=== PATIENT | female | born 1945 | race Caucasian/White ===

== ENCOUNTER 2016-03-16 08:06 | Outpatient (CLI) | payer MEDICARE, OTHER | END 2016-03-16 08:07 | disposition home or self-care (01) | DX: E11.9 Type 2 diabetes mellitus without complications (principal) ==

== ENCOUNTER 2016-03-27 10:42 | Outpatient (CLI) | payer MEDICARE, OTHER | END 2016-03-27 10:43 | disposition home or self-care (01) | DX: Z85.3 Personal history of malignant neoplasm of breast (principal) ==

== ENCOUNTER 2016-05-25 11:07 | Outpatient (CLI) | payer MEDICARE, OTHER | END 2016-05-25 11:08 | disposition home or self-care (01) | DX: E11.621 Type 2 diabetes mellitus with foot ulcer (principal); L03.039 Cellulitis of unspecified toe ==

== ENCOUNTER 2016-06-06 08:51 | Outpatient (CLI) | payer MEDICARE, OTHER | END 2016-06-06 08:52 | disposition home or self-care (01) | DX: G47.33 Obstructive sleep apnea (adult) (pediatric) (principal) | CPT/HCPCS: 99214; G0463 ==

== ENCOUNTER 2016-06-11 19:22 | Outpatient (CLI) | payer MEDICARE, OTHER | END 2016-06-11 19:23 | disposition home or self-care (01) | DX: G47.33 Obstructive sleep apnea (adult) (pediatric) (principal); Z68.35 Body mass index [BMI] 35.0-35.9, adult ==

== ENCOUNTER 2016-06-27 09:02 | Outpatient (CLI) | payer MEDICARE, OTHER | END 2016-06-27 09:03 | disposition home or self-care (01) | DX: G47.33 Obstructive sleep apnea (adult) (pediatric) (principal) | CPT/HCPCS: 99214; G0463 ==

== ENCOUNTER 2016-08-20 07:24 | Outpatient (CLI) | payer MEDICARE, OTHER ==
[2016-08-20 07:57] LABS: ALBUMIN/GLOBULIN RATIO 1.4 (1.0-2.2); BILIRUBIN,TOTAL 0.4 mg/dL (0.2-1.0); BUN - BLOOD UREA NITROGEN 25 mg/dL (6-20); CALCIUM 9.7 mg/dL (8.5-10.3); CARBON DIOXIDE - CO2 27 mmol/L (21-32); CHLORIDE 104 mmol/L (101-111); CHOLESTEROL 137 mg/dL; GFR - MDRD 55 (>89); GLUCOSE 113 mg/dL (70-100); HDL CHOLESTEROL 46 mg/dL; LDL/HDL RATIO 1.5 (<4.4); POTASSIUM 3.6 mmol/L (3.5-5.0); SODIUM 141 mmol/L (135-145); TOTAL PROTEIN 6.6 g/dL (6.7-8.2); TRIGLYCERIDES 101 mg/dL; VLDL CHOLESTEROL 20 mg/dL
[2016-08-20 07:58] LABS: BASOPHILS # (AUTO) 0.1 10^3/uL (0.0-0.1); BASOPHILS % (AUTO) 1.3 %; EOSINOPHILS # (AUTO) 0.3 10^3/uL (0.0-0.7); HCT - HEMATOCRIT 38.2 % (37.0-47.0); HGB - HEMOGLOBIN 12.9 g/dL (12.0-16.0); LYMPHOCYTES # (AUTO) 2.2 10^3/uL (1.5-3.5); LYMPHOCYTES % (AUTO) 32.7 %; MEAN CORPUSCULAR HEMOGLOBIN 30.6 pg (27.0-31.0); MEAN CORPUSCULAR HGB CONC 33.7 g/dL (32.0-36.0); MEAN CORPUSCULAR VOLUME 90.9 fL (81.0-99.0); MEAN PLATELET VOLUME 7.8 fL (7.9-10.8); MONOCYTES # (AUTO) 0.7 10^3/uL (0.0-1.0); MONOCYTES % (AUTO) 10.9 %; NEUTROPHILS # (AUTO) 3.4 10^3/uL (1.5-6.6); NEUTROPHILS % (AUTO) 50.1 %; RED CELL DISTRIBUTION WIDTH 13.7 % (12.0-15.0); UNCORRECTED WHITE BLOOD COUNT 6.8 x10^3/uL; WHITE BLOOD COUNT 6.8 x10^3/uL (4.8-10.8)
[2016-08-20 08:07] LABS: HEMOGLOBIN A1C 0.56 g/dL
== END 2016-08-20 07:25 | disposition home or self-care (01) ==
LOC: LAB 07:24
PROVIDERS: ATTEND Family Medicine
DX: I10 Essential (primary) hypertension (principal); E11.9 Type 2 diabetes mellitus without complications; E78.5 Hyperlipidemia, unspecified
CPT/HCPCS: 36415; 80053; 80061; 83036; 84443; 85025

== ENCOUNTER 2016-08-22 09:38 | Outpatient (CLI) | payer MEDICARE, OTHER | END 2016-08-22 09:39 | disposition home or self-care (01) | LOC: SC 09:38 | PROVIDERS: ATTEND Nurse Practitioner Family | DX: G47.33 Obstructive sleep apnea (adult) (pediatric) (principal) | CPT/HCPCS: 99214; G0463; 99212 ==

== ENCOUNTER 2016-11-27 08:41 | Outpatient (CLI) | payer MEDICARE, OTHER | END 2016-11-27 08:42 | disposition home or self-care (01) | LOC: SC 08:41 | PROVIDERS: ATTEND Nurse Practitioner Family | DX: G47.33 Obstructive sleep apnea (adult) (pediatric) (principal) | CPT/HCPCS: 99214; G0463; 99212 ==

== ENCOUNTER 2017-02-18 10:23 | Emergency (ER) | payer MEDICARE, OTHER ==
--- NOTE | 2017-02-18 13:05 | XRAY Preliminary Report ---
Exam: XR KNEE 3 VIEW LT IMPRESSION: 1. Suggestion of a hairline fracture medial tibial plateau. Correlate clinically determine if dedicat ed CT study would BE useful to further evaluate. 2. Small joint effusion. 3. Minimal degenerative changes, grade one by Kellgren and Adi classification. [facility] SITE ID: [id number]
--- NOTE | 2017-02-18 13:16 | XRAY Report ---
EXAM: LEFT KNEE RADIOGRAPHY EXAM DATE: 02/18/2017 12:17 PM. CLINICAL HISTORY: Pain without precipitating injury. COMPARISON: None. TECHNIQUE: 3 views. FINDINGS: Bones: Osteopenia. Suggestion of a linear hairline fracture sagittal plane medialmost aspect of the medial t ibial plateau, without depression. Joints: Small joint effusion. Minimal bony degenerative changes. Soft Tissues: Normal. No soft tissue swelling. IMPRESSION: 1. Suggestion of a hairline fracture medial tibial plateau. Correlate clinically to determine if dedi cated CT study would be useful to further evaluate. 2. Small joint effusion. 3. Minimal degenerative changes, grade 1 by Kellgren and Adi classification. [facility] Referring Provider Line: [phone] SITE ID: [id number]
--- NOTE | 2017-02-18 14:20 | CT Preliminary Report ---
Exam: CT LOWER EXTREMITY LEFT W/O IMPRESSION: 1. No fracture by CT. 2. Mild osteoarthritis. 3. Mild knee effusion. [facility] SITE ID: [id number]
--- NOTE | 2017-02-18 14:23 | CT Report ---
EXAM: LEFT KNEE CT WITHOUT CONTRAST EXAM DATE: 02/18/2017 02:11 PM. CLINICAL HISTORY: Left knee pain. Possible tibial plateau fracture. COMPARISON: 02/18/2017 and radiograph. TECHNIQUE: Thin-section axial images were acquired of the knee without contrast. Post-processing: Cor onal and sagittal reformats. Other: None. In accordance with CT protocol optimization, one or more of the following dose reduction techniques w ere utilized for this exam: automated exposure control, adjustment of mA and/or KV based on patient s ize, or use of iterative reconstructive technique. FINDINGS: Bones: Moderate osteopenia limits evaluation for subtle bony abnormalities. No fractures appreciated by CT. Joints: Mild tricompartmental osteophytes are present in the knee joint. A mild effusion is present. Musculature: Normal. No fatty atrophy. Other: There is enthesopathy at the PCL insertion and in the extensor mechanism. Arterial calcificati ons indicate atherosclerosis. IMPRESSION: 1. No fracture by CT. 2. Mild osteoarthritis. 3. Mild knee effusion. [facility] Referring Provider Line: [phone] SITE ID: [id number]
--- NOTE | 2017-02-18 14:51 | ED Physician Documentation ---
History of Present Illness - Stated complaint Stated Complaint: LEFT LEG PX - Chief complaint Chief Complaint: Trauma Ext - History obtained from History obtained from: Patient (pt is here for evaluation of left knee pain. she states that over the past couple days she has had pain with walking, no specific trauma.) Review of Systems Constitutional: denies: Fever, Chills Cardiac: denies: Chest pain / pressure Respiratory: denies: Dyspnea GI: denies: Abdominal Pain, Nausea, Vomiting : denies: Dysuria Skin: denies: Rash, Lesions Musculoskeletal: reports: Extremity pain (left knee), Joint pain (left knee), Pain with weight bearing (left knee). denies: Extremity swelling, Joint swelling Neurologic: denies: Generalized weakness, Focal weakness, Numbness PD PAST MEDICAL HISTORY - Past Medical History Past Medical History: Yes Cardiovascular: Congestive heart failure, Hypertension, High cholesterol Respiratory: COPD, Sleep apnea, CPAP use Neuro: None, Peripheral neuropathy Endocrine/Autoimmune: Type 2 diabetes, HyPOthyroidism, Other GI: Colon polyps, Chronic constipation CHIROPRACTIC NEUROLOGIST: Breast cancer : Renal insuffiency HEENT: Other Psych: Depression Musculoskeletal: Osteoarthritis, Gout, Other Derm: Other - Past Surgical History Past Surgical History: Yes General: Colonoscopy Ortho: Knee replacement, Carpal Tunnel surgery, Other HEENT: Cataracts, Tonsil/Adenoidectomy - Present Medications Home Medications: Ambulatory Orders Medication Instructions Recorded Confirmed Allopurinol 100 mg PO DAILY 09/25/12 02/18/17 Levothyroxine Sodium [Levothroid] 125 mcg PO DAILY 09/25/12 02/18/17 Lovastatin [Mevacor] 40 mg PO DAILY 09/25/12 02/18/17 Furosemide [Lasix] 80 mg PO QAM 11/28/12 02/18/17 Insulin Aspart [Novolog] 25 unit SQ TID 11/28/12 02/18/17 Insulin Glargine,Hum.rec.anlog 40 unit SQ QAM 11/28/12 02/18/17 [Lantus Solostar] Metformin HCl 1,000 mg PO BID 11/28/12 02/18/17 Potassium Chloride [Klor-Con 10] 40 meq PO DAILY 11/28/12 02/18/17 Aspirin [Aspir 81] 81 mg PO DAILY 07/16/13 02/18/17 Cholecalciferol (Vitamin D3) 2,000 unit PO DAILY 07/16/13 02/18/17 [Vitamin D3] Alprazolam 1 mg PO QPM PRN 10/08/13 02/18/17 Ubidecarenone [Co Q-10] 200 mg PO DAILY 05/27/14 02/18/17 Linaclotide [Linzess] 290 mcg PO DAILY 12/08/14 02/18/17 Lincoln-3 Fatty Acids [Fish Oil] 1,200 mg PO BID 03/02/15 02/18/17 Anastrozole 1 mg DAILY 03/25/15 06/07/16 buPROPion [Wellbutrin Sr] 300 mg PO DAILY 11/30/15 02/18/17 Turmeric/Turmeric Root Extract 500 mg PO DAILY 06/07/16 02/18/17 [Turmeric] - Allergies Allergies/Adverse Reactions: Allergies Allergy/AdvReac Type Severity Reaction Status Date / Time lisinopril Allergy Intermediate low BP Verified 02/18/17 11:08 Penicillins Allergy Intermediate Unknown Verified 02/18/17 11:08 theophylline Allergy Intermediate Rash Verified 02/18/17 11:08 oxycodone Allergy Unknown Verified 02/18/17 11:08 aripiprazole [From Abilify] AdvReac Intermediate Depression Verified 02/18/17 11 :08 clindamycin AdvReac Intermediate stomatitis Verified 02/18/17 11:08 losartan potassium * AdvReac Intermediate renal Verified 02/18/17 11:08 [From Cozaar] problems - Social History Does the pt smoke?: No Smoking Status: Never smoker Does the pt drink ETOH?: No Does the pt have substance abuse?: No - Immunizations Immunizations are current?: Yes - POLST Patient has POLST: Yes PD ED PE NORMAL - Vitals Vital signs reviewed: Yes - General General: Alert and oriented X 3 - Cardiac Cardiac: Strong equal pulses - Derm Derm: Normal color, No rash - Extremities Extremities: No deformity, No edema, No calf tenderness / cord. No: No tenderness to palpate (pt with TTO pver the left posterior knee and laong the medial aspect of the knee. has full ROM. no effusion, no instability. Has TTP over the proximal fibula. ) - Neuro Neuro: Alert and oriented X 3, Other (sensation intact to light touch to the left knee. ) - Psych Psych: Normal mood, Normal affect Results - Vitals Vitals: Vital Signs - 24 hr 02/18/17 02/18/17 10:49 13:39 Temperature 36.8 C 37.0 C Heart Rate 80 74 Respiratory 20 18 Rate Blood Pressure 174/81 H 176/86 H O2 Saturation 99 100 Oxygen O2 Source [With Activity] Room air O2 Source Room air - Labs Labs: Laboratory Tests 02/18/17 12:16 POC Whole Bld Glucose 104 H - Rads (name of study) X-ray left knee Radiology: Final report received Knee CT Radiology: Final report received PD MEDICAL DECISION MAKING - ED course Complexity details: d/w patient ED course: pt is N/V intact to the left knee. No effusion, no fracture on the CT scan. discussed RICE treatment with the patient. will avoid NSAID's because of possible renal issues. She will follow up with her PCm. Departure - Departure Disposition: 01 Home, Self Care Clinical Impression: Knee injury Condition: Good Instructions: ED Sprain Knee, RICE Follow-Up: Tabitha Jameson DO [Primary Care Provider] - Comments: Recommend that you follow up with your primary care provider for a follow up. Elevate and ice the knee like we discussed. Return to the ER for any new or worsening symptoms.
[2017-02-18 15:08] VITALS: BP 119/64
== END 2017-02-18 15:10 | disposition home or self-care (01) ==
LOC: ED 10:23
DX: S89.92XA Unspecified injury of left lower leg, initial encounter (principal); X58.XXXA Exposure to other specified factors, initial encounter; I11.0 Hypertensive heart disease with heart failure; I50.9 Heart failure, unspecified; E11.42 Type 2 diabetes mellitus with diabetic polyneuropathy; Z79.4 Long term (current) use of insulin; E03.9 Hypothyroidism, unspecified; Z85.3 Personal history of malignant neoplasm of breast; Z86.010 Personal history of colon polyps; E78.00 Pure hypercholesterolemia, unspecified; J44.9 Chronic obstructive pulmonary disease, unspecified; G47.30 Sleep apnea, unspecified; M19.90 Unspecified osteoarthritis, unspecified site; M10.9 Gout, unspecified; Z79.82 Long term (current) use of aspirin
CPT/HCPCS: 99282; 99283

== ENCOUNTER 2017-03-15 08:03 | Outpatient (CLI) | payer MEDICARE, OTHER ==
[2017-03-15 08:24] LABS: BASOPHILS # (AUTO) 0.1 10^3/uL (0.0-0.1); BASOPHILS % (AUTO) 0.8 %; EOSINOPHILS # (AUTO) 0.3 10^3/uL (0.0-0.7); EOSINOPHILS % (AUTO) 3.7 %; HGB - HEMOGLOBIN 13.2 g/dL (12.0-16.0); LYMPHOCYTES # (AUTO) 2.2 10^3/uL (1.5-3.5); LYMPHOCYTES % (AUTO) 28.1 %; MEAN CORPUSCULAR HEMOGLOBIN 31.5 pg (27.0-31.0); MEAN CORPUSCULAR HGB CONC 34.4 g/dL (32.0-36.0); MEAN CORPUSCULAR VOLUME 91.7 fL (81.0-99.0); MEAN PLATELET VOLUME 7.4 fL (7.9-10.8); MONOCYTES # (AUTO) 0.7 10^3/uL (0.0-1.0); MONOCYTES % (AUTO) 9.1 %; NEUTROPHILS # (AUTO) 4.6 10^3/uL (1.5-6.6); NEUTROPHILS % (AUTO) 58.3 %; PLT - PLATELET COUNT 228 10^3/uL (130-450); RED CELL DISTRIBUTION WIDTH 13.2 % (12.0-15.0); WHITE BLOOD COUNT 7.8 x10^3/uL (4.8-10.8)
[2017-03-15 08:58] LABS: ALBUMIN 4.1 g/dL (3.2-5.5); ALBUMIN/GLOBULIN RATIO 1.3 (1.0-2.2); ALKALINE PHOSPHATASE 51 IU/L (42-121); ALT ALANINE AMINOTRANSFERASE 24 IU/L (10-60); AST ASPARTATE AMINOTRANSFERASE 23 IU/L (10-42); BILIRUBIN,TOTAL 0.6 mg/dL (0.2-1.0); BUN - BLOOD UREA NITROGEN 29 mg/dL (6-20); CALCIUM 10.3 mg/dL (8.5-10.3); CARBON DIOXIDE - CO2 29 mmol/L (21-32); CHLORIDE 99 mmol/L (101-111); CHOL/HDL RATIO 3.5 (<4.4); CHOLESTEROL 149 mg/dL; CREATININE 1.1 mg/dL (0.4-1.0); GFR - MDRD 49 (>89); GLUCOSE 112 mg/dL (70-100); HDL CHOLESTEROL 42 mg/dL; LDL CHOLESTEROL,CALCULATED 74 mg/dL; LDL/HDL RATIO 1.8 (<4.4); SODIUM 139 mmol/L (135-145); TOTAL PROTEIN 7.2 g/dL (6.7-8.2); VLDL CHOLESTEROL 33 mg/dL
[2017-03-15 09:05] LABS: HB2 TOTAL 14.6 g/dL; HEMOGLOBIN A1C 0.7 g/dL; HEMOGLOBIN A1C % 6.5 % (4.6-6.2)
== END 2017-03-15 08:04 | disposition home or self-care (01) ==
LOC: LAB 08:03
PROVIDERS: ATTEND Family Medicine
DX: E11.9 Type 2 diabetes mellitus without complications (principal)
CPT/HCPCS: 36415; 80053; 80061; 82043; 83036; 84443; 85025

== ENCOUNTER 2017-04-01 08:46 | Outpatient (CLI) | payer MEDICARE, OTHER ==
--- NOTE | 2017-04-01 15:03 | Mammography Report ---
DATE OF SERVICE: 04/01/2017 DIAGNOSTIC BILATERAL MAMMOGRAM: 04/01/2017 CLINICAL INDICATION: A 71-year-old with personal history of left breast cancer , status post lumpectomy and radiation therapy. COMPARISON: 03/27/2016, 09/09/2015, 03/17/2015, 03/25/2012, 03/13/2013, 2012, 03/15/2011, 03/15/2010, 03/15/2009. TECHNIQUE: Bilateral CC and MLO views, left true lateral and spot magnification views. FINDINGS: The breasts demonstrate scattered fibroglandular densities bilaterally. Postoperative and post-radiation changes in the left breast are stable. Coarse , typically benign calcifications are present, no suspicious masses, clustered microcalcifications, or regions of architectural distortion are identified. IMPRESSION: BENIGN FINDINGS. RECOMMENDATION: Routine annual mammography unless otherwise clinically indicated. BIRADS CATEGORY 2 - BENIGN FINDINGS. STANDARD QUALIFYING STATEMENTS: 1. This examination was reviewed with the aid of Computer-Aided Detection (CAD) . 2. A negative or benign imaging report should not delay biopsy if clinically suspicious findings are present. Consider surgical consultation if warranted. More than 5 % of cancers are not identified by imaging. 3. Dense breasts may obscure an underlying neoplasm. TD: 04/01/2017 16:02 ANDREEA
== END 2017-04-01 08:47 | disposition home or self-care (01) ==
LOC: DI 08:46
PROVIDERS: ATTEND Physician Assistant Medical
DX: Z12.31 Encounter for screening mammogram for malignant neoplasm of breast (principal); Z85.3 Personal history of malignant neoplasm of breast
CPT/HCPCS: 77066

== ENCOUNTER 2017-06-04 09:24 | Outpatient (CLI) | payer MEDICARE, OTHER | END 2017-06-04 09:25 | disposition home or self-care (01) | LOC: SC 09:24 | PROVIDERS: ATTEND Nurse Practitioner Family | DX: G47.33 Obstructive sleep apnea (adult) (pediatric) (principal) | CPT/HCPCS: 99214; G0463; 99212 ==

== ENCOUNTER 2017-08-06 08:59 | Outpatient (CLI) | payer MEDICARE, OTHER ==
--- NOTE | 2017-08-07 10:17 | Nuclear Medicine Report ---
EXAM: BONE SCAN EXAM DATE: 08/06/2017 11:29 AM. CLINICAL HISTORY: Shoulder pain, right. History of personal malignancy, breast. COMPARISON: None. TECHNIQUE: Following the intravenous administration of 32.9 mCi of technetium 99m MDP and an appropri ate delay, a whole-body scan was performed in anterior and posterior projections. Site-specific spot views of the region of interest were obtained in various projections. FINDINGS: Exam Quality: Normal overall osseous radiotracer uptake. Physiological tracer uptake in bilateral col lecting systems. Skull: No focal uptake. Thorax: Mild increased uptake bilateral acromioclavicular joints, right greater than left. There is also mild increased uptake bilateral sternoclavicular joints. Mild increased uptake bilatera l T7 costovertebral junctions, likely degenerative. Mild increased uptake bilateral glenohumeral joints. Pelvis: No focal lesions. Spine: Mild to moderate increased uptake anterior lower cervical spine, likely degenerative disk dise ase. Mild increased uptake in the knees and ankles, degenerative. IMPRESSION: 1. Mild increased uptake bilateral acromioclavicular joints, right greater than left, consistent with degenerative joint disease. Also, mild increased uptake in the bilateral glenohumeral joints, also c onsistent with degenerative joint disease. 2. Uptake in the lower anterior cervical spine likely degenerative disk disease. 3. Mild degenerative changes in the mid thoracic spine, knees and ankles. [facility] Referring Provider Line: [phone] SITE ID: [id number]
== END 2017-08-06 09:00 | disposition home or self-care (01) ==
LOC: DI 08:59
PROVIDERS: ATTEND Family Medicine
DX: M25.9 Joint disorder, unspecified (principal)
CPT/HCPCS: 78306; A9503

== ENCOUNTER 2017-08-12 08:00 | Outpatient (CLI) | payer MEDICARE, OTHER ==
[2017-08-12 12:36] LABS: ALBUMIN 3.6 g/dL (3.2-5.5); ALBUMIN/GLOBULIN RATIO 1.1 (1.0-2.2); BILIRUBIN,TOTAL 0.4 mg/dL (0.2-1.0); CALCIUM 9.7 mg/dL (8.5-10.3); CREATININE 0.8 mg/dL (0.4-1.0); TOTAL PROTEIN 6.8 g/dL (6.7-8.2)
[2017-08-12 12:37] LABS: HB2 TOTAL 13.3 g/dL; HEMOGLOBIN A1C 0.58 g/dL; HEMOGLOBIN A1C % 6.1 % (4.6-6.2)
[2017-08-12 12:44] LABS: THYROID STIMULATING HORMONE 0.6 uIU/mL (0.34-5.60)
[2017-08-12 12:51] LABS: BASOPHILS # (AUTO) 0.1 10^3/uL (0.0-0.1); EOSINOPHILS # (AUTO) 0.7 10^3/uL (0.0-0.7); EOSINOPHILS % (AUTO) 9.9 %; HGB - HEMOGLOBIN 12.4 g/dL (12.0-16.0); LYMPHOCYTES # (AUTO) 1.9 10^3/uL (1.5-3.5); LYMPHOCYTES % (AUTO) 25.2 %; MEAN CORPUSCULAR HEMOGLOBIN 31.4 pg (27.0-31.0); MEAN CORPUSCULAR HGB CONC 33.7 g/dL (32.0-36.0); MEAN CORPUSCULAR VOLUME 93.1 fL (81.0-99.0); MEAN PLATELET VOLUME 8.4 fL (7.9-10.8); MONOCYTES # (AUTO) 0.6 10^3/uL (0.0-1.0); MONOCYTES % (AUTO) 8.3 %; NEUTROPHILS # (AUTO) 4.1 10^3/uL (1.5-6.6); NEUTROPHILS % (AUTO) 55.6 %; PLT - PLATELET COUNT 249 10^3/uL (130-450); RED BLOOD COUNT 3.94 10^6/uL (4.20-5.40); WHITE BLOOD COUNT 7.4 x10^3/uL (4.8-10.8)
== END 2017-08-12 08:01 | disposition home or self-care (01) ==
LOC: LAB.WCP 08:00
PROVIDERS: ATTEND Family Medicine
DX: E11.9 Type 2 diabetes mellitus without complications (principal)
CPT/HCPCS: 36415; 80053; 82607; 83036; 84443; 85025

== ENCOUNTER 2018-03-20 08:00 | Outpatient (CLI) | payer MEDICARE, OTHER ==
[2018-03-20 12:55] LABS: BASOPHILS # (AUTO) 0.1 10^3/uL (0.0-0.1); BASOPHILS % (AUTO) 1.3 %; EOSINOPHILS # (AUTO) 0.9 10^3/uL (0.0-0.7); EOSINOPHILS % (AUTO) 11.4 %; HGB - HEMOGLOBIN 13.5 g/dL (12.0-16.0); LYMPHOCYTES # (AUTO) 1.7 10^3/uL (1.5-3.5); LYMPHOCYTES % (AUTO) 22.1 %; MEAN CORPUSCULAR HEMOGLOBIN 31.1 pg (27.0-31.0); MEAN CORPUSCULAR HGB CONC 34.2 g/dL (32.0-36.0); MEAN CORPUSCULAR VOLUME 91.1 fL (81.0-99.0); MEAN PLATELET VOLUME 8.7 fL (7.9-10.8); MONOCYTES # (AUTO) 0.6 10^3/uL (0.0-1.0); MONOCYTES % (AUTO) 7.7 %; NEUTROPHILS # (AUTO) 4.6 10^3/uL (1.5-6.6); NEUTROPHILS % (AUTO) 57.5 %; PLT - PLATELET COUNT 242 10^3/uL (130-450); RED BLOOD COUNT 4.34 10^6/uL (4.20-5.40); RED CELL DISTRIBUTION WIDTH 14.1 % (12.0-15.0); WHITE BLOOD COUNT 7.9 x10^3/uL (4.8-10.8)
[2018-03-20 13:12] LABS: ALBUMIN 4.1 g/dL (3.2-5.5); ALBUMIN/GLOBULIN RATIO 1.4 (1.0-2.2); ALKALINE PHOSPHATASE 59 IU/L (42-121); ALT ALANINE AMINOTRANSFERASE 19 IU/L (10-60); AST ASPARTATE AMINOTRANSFERASE 27 IU/L (10-42); BILIRUBIN,TOTAL 0.7 mg/dL (0.2-1.0); BUN - BLOOD UREA NITROGEN 21 mg/dL (6-20); CALCIUM 10.4 mg/dL (8.5-10.3); CARBON DIOXIDE - CO2 28 mmol/L (21-32); CHLORIDE 98 mmol/L (101-111); CHOL/HDL RATIO 3.6 (<4.4); CHOLESTEROL 147 mg/dL; CREATININE 0.9 mg/dL (0.4-1.0); GFR - MDRD 62 (>89); GLUCOSE 122 mg/dL (70-100); HDL CHOLESTEROL 41 mg/dL; LDL CHOLESTEROL,CALCULATED 68 mg/dL; LDL/HDL RATIO 1.7 (<4.4); SODIUM 137 mmol/L (135-145); TOTAL PROTEIN 7.1 g/dL (6.7-8.2); VLDL CHOLESTEROL 38 mg/dL
[2018-03-20 13:22] LABS: HB2 TOTAL 14.6 g/dL; HEMOGLOBIN A1C 0.74 g/dL; HEMOGLOBIN A1C % 6.8 % (4.6-6.2)
== END 2018-03-20 23:59 | disposition home or self-care (01) ==
LOC: LAB.WCP 08:00
PROVIDERS: ATTEND Family Medicine
DX: E11.9 Type 2 diabetes mellitus without complications (principal)
CPT/HCPCS: 36415; 80053; 80061; 83036; 83721; 84443; 85025

== ENCOUNTER 2018-05-08 08:25 | Outpatient (CLI) | payer MEDICARE, OTHER ==
--- NOTE | 2018-05-08 14:53 | Mammography Report ---
Reason: L BREAST CANCER Procedure Date: 05/08/2018 Accession Number: [id number] / [id number] Procedure: INGRID - Diagnostic Dig Bilat CPT Code: FULL RESULT: EXAM: Diagnostic Dig Bilat DATE: 05/08/2018 9:24 AM CLINICAL HISTORY: Left breast cancer status post lumpectomy and radiation therapy in 2014. TECHNIQUE: Bilateral CC, MLO and left MLO views are obtained. COMPARISON: 04/01/2017 through 03/13/2013. FINDINGS: The breasts demonstrate scattered fibroglandular densities bilaterally. There is expected decrease in size and consolidation of post treatment changes in the left breast with no interval development of concerning findings. No suspicious architectural distortion, calcifications or mass is identified. IMPRESSION: Probably benign findings RECOMMENDATION: Recommend routine annual diagnostic mammography unless otherwise clinically indicated. BIRADS CATEGORY 3 STANDARD QUALIFYING STATEMENTS: 1. This examination was not reviewed with the aid of Computer-Aided Detection (CAD). 2. A negative or benign imaging report should not delay biopsy if clinically suspicious findings are present. Consider surgical consultation if warrented. More than 5% of cancers are not identified by imaging. 3. Dense breasts may obscure an underlying neoplasm. 4. This examination was reviewed with the aid of 3D imaging (tomography).
== END 2018-05-08 08:26 | disposition home or self-care (01) ==
LOC: DI 08:25
PROVIDERS: ATTEND Internal Medicine
DX: C50.112 Malignant neoplasm of central portion of left female breast (principal)
CPT/HCPCS: 77066

== ENCOUNTER 2018-06-02 09:28 | Outpatient (CLI) | payer MEDICARE, OTHER ==
--- NOTE | 2018-06-02 10:33 | XRAY Report ---
Reason: HIP PAIN, LEFT Procedure Date: 06/02/2018 Accession Number: [id number] / [id number] Procedure: WCP - Hip w/Pelvis 2-3V LT CPT Code: FULL RESULT: EXAM: LEFT HIP RADIOGRAPHY EXAM DATE: 06/02/2018 09:43 AM. CLINICAL HISTORY: Hip pain, left. COMPARISON: None. TECHNIQUE: 2 views. FINDINGS: Bones: Normal. No fractures or bone lesion. Joints: Degenerative changes are seen at the pubic symphysis. Visualization of the sacroiliac joints is limited by soft tissue overlap. Both femoroacetabular joints demonstrate a medial predominant pattern of joint space narrowing, at least moderate and symmetric. Soft Tissues: Normal. No soft tissue swelling. IMPRESSION: Degenerative joint disease. [facility]
== END 2018-06-02 09:29 | disposition home or self-care (01) ==
LOC: DI.WCP 09:28
PROVIDERS: ATTEND Family Medicine
DX: M16.12 Unilateral primary osteoarthritis, left hip (principal); G47.33 Obstructive sleep apnea (adult) (pediatric)
CPT/HCPCS: 73502; 99214; G0463; 99212

== ENCOUNTER 2018-06-02 10:41 | Outpatient (CLI) | payer MEDICARE, OTHER | END 2018-06-02 10:42 | disposition home or self-care (01) | LOC: SC 10:41 | PROVIDERS: ATTEND Nurse Practitioner Family | DX: G47.33 Obstructive sleep apnea (adult) (pediatric) (principal) | CPT/HCPCS: 99212; 99214 ==

== ENCOUNTER 2018-07-11 07:54 | Outpatient (CLI) | payer MEDICARE, OTHER ==
--- NOTE | 2018-07-11 14:10 | DEXA Report ---
Reason: OSTEOPOROSIS Procedure Date: 07/11/2018 Accession Number: [id number] / [id number] Procedure: DEX - Dexa Spine and/or Hip CPT Code: FULL RESULT: EXAM: Dexa Hip, Dexa Forearm DATE: 07/11/2018 8:20 AM CLINICAL HISTORY: Postmenopausal female TECHNIQUE: Dual energy x-ray absorptiometry (DXA) was performed on a Standard [employer] System. Regions measured are the femoral neck and right forearm. Patient is left-handed. COMPARISON: 03/17/2015. In accordance with the International Society for Clinical Densitometry (ISCD) guidelines, data from previous exams may be reanalyzed using current recommendations and techniques. This is done to allow a more accurate basis for comparison with the current study. FINDINGS: The data for the hip is as follows: BMD (g/cm/cm) T-SCORE Z-SCORE REGION Neck 1.025 -0.1 1.0 TOTAL 1.213 1.6 2.5 NOTE: The femoral neck or total proximal femur, whichever is lowest, is used for classification. The data for the right forearm is as follows: BMD (g/cm/cm) T-SCORE Z-SCORE REGION 1/3 0.904 0.3 2.4 NOTE: The 33% radius of the nondominant forearm is used for classification. IMPRESSION: THE WHO CLASSIFICATION BASED ON THE INTERNATIONAL REFERENCE STANDARD IS NORMAL. THE FRACTURE RISK IS NOT INCREASED. RECOMMENDATION: Patients with diagnosis of osteoporosis or osteopenia should have regular bone mineral density assessment. For those eligible for Medicare, routine testing is allowed once every 2 years. Testing frequency can be increased for patients who have rapidly progressing disease or for those who are receiving medical therapy to restore bone mass. COMMENT: World Health Organization (WHO) definitions for osteoporosis and osteopenia: NORMAL BMD: T-score at -1.0 or higher, fracture risk is low OSTEOPENIA BMD: T-score between -1.0 and -2.5, fracture risk is increased. OSTEOPOROSIS BMD: T-score at -2.5 or lower, fracture risk is high. National Osteoporosis Foundation recommends: 1. Obtain adequate dietary calcium (at least 1200 mg per day) and vitamin D (400-800 international units per day). 2. Participate, as appropriate, in regular weightbearing and muscle-strengthening exercise. 3. Avoid tobacco use and reduce alcohol and caffeine intake. 4. For more detailed information see the website at www.NOF.org.
== END 2018-07-11 07:55 | disposition home or self-care (01) ==
LOC: DI 07:54
PROVIDERS: ATTEND Internal Medicine
DX: M81.0 Age-related osteoporosis without current pathological fracture (principal); C50.912 Malignant neoplasm of unspecified site of left female breast; Z79.811 Long term (current) use of aromatase inhibitors
CPT/HCPCS: 77080; 77081

== ENCOUNTER 2018-10-06 08:56 | Outpatient (CLI) | payer MEDICARE, OTHER ==
[2018-10-06 13:22] LABS: HB2 TOTAL 13.1 g/dL; HEMOGLOBIN A1C 0.77 g/dL; HEMOGLOBIN A1C % 7.5 % (4.6-6.2)
[2018-10-06 13:31] LABS: ALBUMIN 3.8 g/dL (3.2-5.5); ALBUMIN/GLOBULIN RATIO 1.2 (1.0-2.2); ALKALINE PHOSPHATASE 52 IU/L (42-121); ALT ALANINE AMINOTRANSFERASE 21 IU/L (10-60); AST ASPARTATE AMINOTRANSFERASE 26 IU/L (10-42); BILIRUBIN,TOTAL 0.7 mg/dL (0.2-1.0); BUN - BLOOD UREA NITROGEN 18 mg/dL (6-20); CALCIUM 11.1 mg/dL (8.5-10.3); CARBON DIOXIDE - CO2 28 mmol/L (21-32); CHLORIDE 102 mmol/L (101-111); CHOL/HDL RATIO 3.8 (<4.4); CHOLESTEROL 169 mg/dL; CREATININE 0.9 mg/dL (0.4-1.0); GFR - MDRD 62 (>89); GLUCOSE 111 mg/dL (70-100); HDL CHOLESTEROL 45 mg/dL; LDL CHOLESTEROL,CALCULATED 74 mg/dL; LDL/HDL RATIO 1.6 (<4.4); SODIUM 144 mmol/L (135-145); TOTAL PROTEIN 6.9 g/dL (6.7-8.2); VLDL CHOLESTEROL 50 mg/dL
== END 2018-10-06 08:57 | disposition home or self-care (01) ==
LOC: LAB.WCP 08:56
PROVIDERS: ATTEND Family Medicine
DX: E11.9 Type 2 diabetes mellitus without complications (principal); E78.5 Hyperlipidemia, unspecified
CPT/HCPCS: 36415; 80053; 80061; 83036; 83721

== ENCOUNTER 2019-01-02 08:51 | Outpatient (CLI) | payer MEDICARE, OTHER ==
[2019-01-02 09:17] LABS: CALCIUM 10.3 mg/dL (8.5-10.3); CREATININE 0.9 mg/dL (0.4-1.0)
[2019-01-02 09:25] LABS: CREATININE,URINE 201.8 mg/dL; MICROALBUM/CREATININE RATIO,UR 22.8 ug/mg (<30.0); MICROALBUMIN,URINE 4.6 mg/dL (0-300.0)
[2019-01-02 09:35] LABS: HB2 TOTAL 13.4 g/dL; HEMOGLOBIN A1C 0.68 g/dL; HEMOGLOBIN A1C % 6.8 % (4.6-6.2)
== END 2019-01-02 08:52 | disposition home or self-care (01) ==
LOC: LAB 08:51
PROVIDERS: ATTEND Family Medicine
DX: E11.9 Type 2 diabetes mellitus without complications (principal)
CPT/HCPCS: 36415; 80048; 82043; 82570; 83036

== ENCOUNTER 2019-05-15 09:54 | Outpatient (CLI) | payer MEDICARE, OTHER ==
--- NOTE | 2019-05-15 15:11 | Mammography Report ---
Reason: LT BREAST CA Procedure Date: 05/15/2019 Accession Number: [id number] / [id number] Procedure: INGRID - Diagnostic Dig Bilat CPT Code: Final Report FULL RESULT: EXAM: Diagnostic Dig Bilat DATE: 05/15/2019 11:07 AM CLINICAL HISTORY: Diagnostic examination. Personal history of breast cancer status post left breast lumpectomy in 2014. TECHNIQUE: (B) - Bilateral CC and MLO views were obtained. Left LM views obtained. COMPARISON: 04/30/2018 through 03/15/2010. PARENCHYMAL PATTERN: (A) - The breast(s) demonstrate(s) scattered fibroglandular densities. FINDINGS: Postlumpectomy changes in the left breast are stable, typically benign. There are no suspicious masses, calcifications, or areas of distortion. IMPRESSION: Benign findings. BI-RADS category 2. RECOMMENDATION: (ANNUAL) - Recommend routine annual screening mammography. BI-RADS CATEGORY: (2) - Benign Findings. STANDARD QUALIFYING STATEMENTS: 1. This examination was not reviewed with the aid of Computer-Aided Detection (CAD). 2. A negative or benign imaging report should not preclude biopsy if clinically suspicious findings are present. 3. Dense breasts may obscure an underlying neoplasm. 4. This examination was reviewed with the aid of 3D breast imaging (tomosynthesis).
== END 2019-05-15 09:55 | disposition home or self-care (01) ==
LOC: DI 09:54
PROVIDERS: ATTEND Internal Medicine
DX: C50.112 Malignant neoplasm of central portion of left female breast (principal)
CPT/HCPCS: 77066

== ENCOUNTER 2019-07-29 14:03 | Outpatient (CLI) | payer MEDICARE, OTHER ==
--- NOTE | 2019-07-29 12:02 | SLEEP CARE CONSULTATION ---
Information from patient questionnaire entered by Lizzy Sutton. I have reviewed and concur with the information entered by Lizzy Sutton. This document represents the service I personally performed and the decisions made by me, Brittani Smallwood, RN, MSN, BLOCK [employer]. History of Present Illness Service Date and Time: 07/29/2019 1130 Previous diagnosis: Mild, Obstructive Sleep Apnea-Hypopnea Syndrome AHI: 13.3 (in 2017)(28.0 in 2006) Reason for follow up: annual (last seen 2018) Equipment type: CPAP Equipment obtained from: [employer] (getting supplies as needed) Mask style: Nasal Backup mask available: Yes (old mask) Last cushion change: 2 weeks ago Prior sleep studies: Yes Year and Where: 2005 and 2016 - [facility] Type of Sleep Study: Polysomnography CPAP Compliance Data - Data Reviewed with Patient Average duration of nightly device use: 9.4 Compliance rate %: 98.9 (180 days) Current pressure setting (cmH2O): 9-12 Humidity settin Heated hose settin Average residual AHI: 2.1 Average large leak: 19 min 3 sec Subjective Patient concerns: reports: mask discomfort (mask discomfort is noted at area of gum soreness where her mask sits. rinising mouth with salt water reducing tenderness. Dentist appt 08/10). denies: aerophagia, air blowing in eyes (however, has had eye itching and treatments since last fall by eye doctor. ), mask leak noise, condensation in mask/hose, nasal congestion, dry mouth, nose, throat, epistaxis, other Observed to snore while using device: No Current pressure setting perceived as: comfortable On therapy, patient: reports: sleeping better, awakening more refreshed, being more awake and alert during the day, more rested overall. denies: drowsiness while driving Initial Pitkin Sleepiness Scale score: 8 (in 2005) Current Pitkin Sleepiness Scale score: 2 Allergies and Home Medications Home medication list reviewed: No Review of Systems Review of systems same as previous: No (gum soreness. eye itching a few weeks under eval by eye Dr since fall . ) Physical Exam Height: 5 ft 3 in Weight: 212 lb (home weight ) Body Mass Index: 37.5 BMI Classification: Obese Impression and Plan 1. Obstructive Sleep Apnea-Hypopnea Syndrome, mild, with good treatment compliance and good apnea control. On CPAP therapy, the patient has better sleep quality and is more rested overall. Patient is pleased with benefit of CPAP treatment. However, her main concern today is tenderness of gum where her mask sits. Until she sees her dentist, I advised her to place a cloth barrier around headgear at that site to see if this can improve comfort. She has been rinsing mouth with salt water with some relief noted in gums. For her eye concerns, under treatment with her eye doctor, she is advised to continue to persist in trying to get nonaold of his staff to make an appointment as he directed her in email. If unable to reach office staff again, she is to follow up with her PCP for further evaluation. To reduce mask leaks, ( do not awaken her) she is advised to change mask cushion more frequently, wash mask cushion daily instead of every few days and slightly adjust mask headgear to improve mask seal and comfort. Patient's apnea severity and rationale for treatment to reduce apnea, improve sleep quality and reduce cardiovascular and cerebrovascular events was reviewed. Patient also advised to continue to work on weight loss as moderate obesity at current weight. * Continue auto CPAP pressure at 9-12 cmH2O * Implement measures to reduce mask leaks. * Follow up with eye doctor, dentist and PCP as discussed. * Notify me if snoring with mask or feeling that the pressure is too much or too little * Attempt to lose weight * Call this office if any problems using CPAP * Return for follow up in 1 year , or sooner if concerns arise Visit Type: Telehealth Phone (to reduce risk of Covid 19 exposure) Patient Location: Home Location of Provider: Home Patient agrees and consents to this telehealth visit type: Yes Patient agrees to have their insurance billed: Yes Time Spent with Patient (minutes): 10+ Provider Statement: I spent 100% of the Telehealth Phone Call with the patient with greater than 50% spent counseling the patient and coordination of care.
== END 2019-07-29 14:04 | disposition home or self-care (01) ==
LOC: SC 14:03
PROVIDERS: ATTEND Nurse Practitioner Family
DX: G47.33 Obstructive sleep apnea (adult) (pediatric) (principal); E66.9 Obesity, unspecified; Z68.37 Body mass index [BMI] 37.0-37.9, adult

== ENCOUNTER 2020-01-30 12:42 | Outpatient (CLI) | payer MEDICARE, OTHER | END 2020-01-30 12:43 | disposition critical access hospital (66) | LOC: EMS 12:42 | PROVIDERS: ATTEND Surgery | DX: Z04.3 Encounter for examination and observation following other accident (principal) | CPT/HCPCS: A0425; A0427 ==

== ENCOUNTER 2020-01-30 12:54 | Inpatient (IN) | payer MEDICARE, OTHER ==
[2020-01-30] MEDS ORDERED: NYSTATIN POWDER 15 GM TOP STA (13:06)
[2020-01-30] MEDS ORDERED: SODIUM CHLORIDE 0.9% 1,000 ML IV STA (13:07)
--- NOTE | 2020-01-30 13:09 | ED Physician Documentation ---
History of Present Illness - Stated complaint Stated Complaint: ALOC - Chief complaint Chief Complaint: Trauma Hd/Nk - History obtained from History obtained from: Patient, EMS - Additonal information Additional information: 74 year-old woman with history of diabetes and breast cancer presents by ambulance because she was found down in her home by neighbors, is unclear how long she was there, potentially up to 3 days which was when she was last seen normal. She is a reasonable historian but does not know why she was on the ground or why she could not get up. She complains of pain around the right eye and to the right hip. Blood sugar on route was in the high 200s. Review of Systems Unable to obtain: Confused PD PAST MEDICAL HISTORY - Past Medical History Cardiovascular: Congestive heart failure, Hypertension, High cholesterol Respiratory: Asthma, COPD, Sleep apnea, CPAP use Endocrine/Autoimmune: Type 2 diabetes, HyPOthyroidism, Other GI: Colon polyps, Chronic constipation [employer]: Breast cancer : Renal insuffiency HEENT: Other Psych: Depression, Eating disorder Musculoskeletal: Osteoarthritis, Gout, Chronic back pain, Other Derm: Other - Past Surgical History Past Surgical History: Yes General: Colonoscopy Ortho: Knee replacement, Carpal Tunnel surgery, Other HEENT: Cataracts, Tonsil/Adenoidectomy - Present Medications Home Medications: Ambulatory Orders Medication Instructions Recorded Confirmed Levothyroxine Sodium [Levothroid] 125 mcg PO DAILY 09/25/12 09/02/19 Lovastatin [Mevacor] 40 mg PO DAILY 09/25/12 09/02/19 allopurinoL [Allopurinol] 100 mg PO DAILY 09/25/12 09/02/19 Furosemide [Lasix] 80 mg PO QAM 11/28/12 09/02/19 Insulin Aspart [Novolog] 25 unit SQ TID 11/28/12 09/02/19 Metformin HCl 1,000 mg PO BID 11/28/12 09/02/19 Potassium Chloride [Klor-Con 10] 40 meq PO DAILY 11/28/12 09/02/19 Aspirin [Aspir 81] 81 mg PO DAILY 07/16/13 09/02/19 Cholecalciferol (Vitamin D3) 5,000 unit PO DAILY 07/16/13 09/02/19 [Vitamin D3] Alprazolam 1 mg PO QPM PRN 10/08/13 09/02/19 Anastrozole 1 mg PO DAILY 03/25/15 09/02/19 buPROPion [Wellbutrin Sr] 200 mg PO BID 11/30/15 09/02/19 Insulin Glargine,Hum.rec.anlog 26 unit SUBQ DAILY 05/28/18 09/02/19 [Basaglar Tamiepen U-100] - Allergies Allergies/Adverse Reactions: Allergies Allergy/AdvReac Type Severity Reaction Status Date / Time lisinopril Allergy Intermediate low BP Verified 01/30/20 13:06 Penicillins Allergy Intermediate Unknown Verified 01/30/20 13:06 theophylline Allergy Intermediate Rash Verified 01/30/20 13:06 oxycodone Allergy Unknown Verified 01/30/20 13:06 aripiprazole [From Abilify] AdvReac Intermediate Depression Verified 01/30/20 13:06 clindamycin AdvReac Intermediate stomatitis Verified 01/30/20 13:06 losartan potassium * AdvReac Intermediate renal Verified 01/30/20 13:06 [From Cozaar] problems - Social History Does the pt smoke?: No Smoking Status: Former smoker Does the pt drink ETOH?: No Does the pt have substance abuse?: No - Immunizations Immunizations are current?: Yes - POLST Patient has POLST: Yes PD ED PE NORMAL - Vitals Vital signs reviewed: Yes - General General: Other (Alert and oriented to person and place, but not time and mediocre for events. She appears to have rigors vs tremors) - HEENT HEENT: PERRL, EOMI, Other (Periorbital edema on the right, potentially from having laid on that side for a long time.) - Neck Neck: No bony TTP - Cardiac Cardiac: RRR, No murmur - Respiratory Respiratory: No respiratory distress, Clear bilaterally - Abdomen Abdomen: Non tender - Back Back: No CVA TTP, No spinal TTP - Derm Derm: Normal color, Warm and dry - Extremities Extremities: Other (Tender over the right hip but it is not shortened or angulated and does not seem to have much pain with internal or external rotation. There is a yeast infection in the right groin.) - Neuro Neuro: No motor deficit, No sensory deficit, Normal speech Eye Opening: Spontaneous Motor: Obeys Commands Verbal: Confused GCS Score: 14 Results - Vitals Vitals: Vital Signs - 24 hr 01/30/20 01/30/20 01/30/20 12:59 13:36 14:22 Temperature 36.7 C 37.6 C 36.5 C Heart Rate 104 H 125 H 115 H Respiratory 22 24 19 Rate Blood Pressure 146/97 H 140/97 H 151/82 H O2 Saturation 100 100 100 01/30/20 01/30/20 01/30/20 14:32 14:38 16:00 Temperature 36.2 C L Heart Rate 100 112 H 117 H Respiratory 18 24 17 Rate Blood Pressure 151/82 H 140/103 H 182/69 H O2 Saturation 100 100 96 01/30/20 17:00 Temperature Heart Rate 98 Respiratory 21 Rate Blood Pressure 183/91 H O2 Saturation 100 Oxygen O2 Source [With Activity] Room air O2 Source Room air - EKG (time done) 1314 Rate: Rate (enter#) (100) Rhythm: NSR (w pvc) QRS: Normal Ischemia: Q waves. No: ST elevation c/w ischemia Computer interpretation: Disagree with computer (reads afib but looks like nsr with artifact causing obscuring) - Labs Labs: Laboratory Tests 01/30/20 01/30/20 01/30/20 13:15 13:45 13:45 WBC 23.7 H RBC 4.95 Hgb 14.9 Hct 44.4 MCV 89.7 MCH 30.1 MCHC 33.6 RDW 14.7 Plt Count 375 MPV 9.9 Neut # (Auto) Not Reportable Lymph # (Auto) Not Reportable Bay # (Auto) Not Reportable Eos # (Auto) Not Reportable Baso # (Auto) Not Reportable Absolute Nucleated RBC Not Reportable Total Counted 100 Band Neuts % (Manual) 2 Reactive Lymphs % (Man) 1 Abnorm Lymph % (Manual) 0 Nucleated RBC % Not Reportable Neutrophils # (Manual) 20.4 H Lymphocytes # (Manual) 1.9 Monocytes # (Manual) 1.4 H Eosinophils # (Manual) 0.0 Basophils # (Manual) 0.0 Differential Comment MANUAL DIFFERENTIAL WBC Morphology 1+ REACTIVE LYMPHS Platelet Estimate NORMAL (130-450,000) Platelet Morphology NORMAL APPEARANCE RBC Morph Micro Appear NORMAL APPEARANCE Sodium 145 Potassium 3.7 Chloride 107 Carbon Dioxide 20 L Anion Gap 18.0 H BUN 49 H Creatinine 1.2 H Estimated GFR (MDRD) 44 L Glucose 358 H Lactic Acid Calcium 10.0 Total Bilirubin 1.2 H AST 75 H ALT 77 H Alkaline Phosphatase 78 Total Creatine Kinase 2358 H* Troponin I High Sens Total Protein 7.0 Albumin 3.4 Globulin 3.6 Albumin/Globulin Ratio 0.9 L TSH Urine Color YELLOW Urine Clarity CLEAR Urine pH 5.5 Ur Specific Cornelius >=1.030 H Urine Protein 100 H Urine Glucose (UA) >=1000 H Urine Ketones 40 H Urine Occult Blood MODERATE H Urine Nitrite NEGATIVE Urine Bilirubin NEGATIVE Urine Urobilinogen 0.2 (NORMAL) Ur Leukocyte Esterase NEGATIVE Urine RBC 11-25 H Urine WBC 4-5 Ur Squamous Epith Cells RARE Squamous Urine Bacteria Few Urine Culture Comments NOT INDICATED Nasal Adenovirus (PCR) Nasal B. parapertussis DNA (PCR) Nasal Coronavir 229E PCR Nasal Coronavir HKU1 PCR Nasal Coronavir NL63 PCR Nasal Coronavir OC43 PCR Nasal Enterovir/Rhinovir PCR Nasal Influenza B PCR Nasal Influenza A PCR Nasal Parainfluen 1 PCR Nasal Parainfluen 2 PCR Nasal Parainfluen 3 PCR Nasal Parainfluen 4 PCR Nasal RSV (PCR) Nasal B.pertussis DNA PCR Nasal C.pneumoniae (PCR) Kadeem Human Metapneumo PCR Nasal M.pneumoniae (PCR) Nasal SARS-CoV-2 (PCR) 01/30/20 01/30/20 01/30/20 13:45 13:45 13:45 WBC RBC Hgb Hct MCV MCH MCHC RDW Plt Count MPV Neut # (Auto) Lymph # (Auto) Bay # (Auto) Eos # (Auto) Baso # (Auto) Absolute Nucleated RBC Total Counted Band Neuts % (Manual) Reactive Lymphs % (Man) Abnorm Lymph % (Manual) Nucleated RBC % Neutrophils # (Manual) Lymphocytes # (Manual) Monocytes # (Manual) Eosinophils # (Manual) Basophils # (Manual) Differential Comment WBC Morphology Platelet Estimate Platelet Morphology RBC Morph Micro Appear Sodium Potassium Chloride Carbon Dioxide Anion Gap BUN Creatinine Estimated GFR (MDRD) Glucose Lactic Acid 3.0 H* Calcium Total Bilirubin AST ALT Alkaline Phosphatase Total Creatine Kinase Troponin I High Sens 29.3 H* Total Protein Albumin Globulin Albumin/Globulin Ratio TSH 0.99 Urine Color Urine Clarity Urine pH Ur Specific Cornelius Urine Protein Urine Glucose (UA) Urine Ketones Urine Occult Blood Urine Nitrite Urine Bilirubin Urine Urobilinogen Ur Leukocyte Esterase Urine RBC Urine WBC Ur Squamous Epith Cells Urine Bacteria Urine Culture Comments Nasal Adenovirus (PCR) Nasal B. parapertussis DNA (PCR) Nasal Coronavir 229E PCR Nasal Coronavir HKU1 PCR Nasal Coronavir NL63 PCR Nasal Coronavir OC43 PCR Nasal Enterovir/Rhinovir PCR Nasal Influenza B PCR Nasal Influenza A PCR Nasal Parainfluen 1 PCR Nasal Parainfluen 2 PCR Nasal Parainfluen 3 PCR Nasal Parainfluen 4 PCR Nasal RSV (PCR) Nasal B.pertussis DNA PCR Nasal C.pneumoniae (PCR) Kadeem Human Metapneumo PCR Nasal M.pneumoniae (PCR) Nasal SARS-CoV-2 (PCR) 01/30/20 01/30/20 13:45 17:29 WBC RBC Hgb Hct MCV MCH MCHC RDW Plt Count MPV Neut # (Auto) Lymph # (Auto) Bay # (Auto) Eos # (Auto) Baso # (Auto) Absolute Nucleated RBC Total Counted Band Neuts % (Manual) Reactive Lymphs % (Man) Abnorm Lymph % (Manual) Nucleated RBC % Neutrophils # (Manual) Lymphocytes # (Manual) Monocytes # (Manual) Eosinophils # (Manual) Basophils # (Manual) Differential Comment WBC Morphology Platelet Estimate Platelet Morphology RBC Morph Micro Appear Sodium Potassium Chloride Carbon Dioxide Anion Gap BUN Creatinine Estimated GFR (MDRD) Glucose Lactic Acid 2.9 H Calcium Total Bilirubin AST ALT Alkaline Phosphatase Total Creatine Kinase Troponin I High Sens Total Protein Albumin Globulin Albumin/Globulin Ratio TSH Urine Color Urine Clarity Urine pH Ur Specific Cornelius Urine Protein Urine Glucose (UA) Urine Ketones Urine Occult Blood Urine Nitrite Urine Bilirubin Urine Urobilinogen Ur Leukocyte Esterase Urine RBC Urine WBC Ur Squamous Epith Cells Urine Bacteria Urine Culture Comments Nasal Adenovirus (PCR) NOT DETECTED Nasal B. parapertussis DNA (PCR) NOT DETECTED Nasal Coronavir 229E PCR NOT DETECTED Nasal Coronavir HKU1 PCR NOT DETECTED Nasal Coronavir NL63 PCR NOT DETECTED Nasal Coronavir OC43 PCR NOT DETECTED Nasal Enterovir/Rhinovir PCR NOT DETECTED Nasal Influenza B PCR NOT DETECTED Nasal Influenza A PCR NOT DETECTED Nasal Parainfluen 1 PCR NOT DETECTED Nasal Parainfluen 2 PCR NOT DETECTED Nasal Parainfluen 3 PCR NOT DETECTED Nasal Parainfluen 4 PCR NOT DETECTED Nasal RSV (PCR) NOT DETECTED Nasal B.pertussis DNA PCR NOT DETECTED Nasal C.pneumoniae (PCR) NOT DETECTED Kadeem Human Metapneumo PCR NOT DETECTED Nasal M.pneumoniae (PCR) NOT DETECTED Nasal SARS-CoV-2 (PCR) NOT DETECTED - Rads (name of study) CT of the head and cervical spine without contrast, single view chest x- ray, and 2 view x-ray of the right hip Radiology: EMP read contemporaneously (All unremarkable) CT A/P Radiology: EMP read contemporaneously (Question duodenitis, Poss abd wall cellulitis (no physical findings of same on exam), ?metabolic d/o affecting bone) PD MEDICAL DECISION MAKING - ED course ED course: 74yo F Presents with altered mental status, and she was down on the ground in her home for an unknown length of time. Potentially up to a few days. She is mildly confused, borderline tachycardic. Blood pressure is solid. She is afebrile on arrival but she is having either chills or tremors, hard to say which. Initial broad differential diagnosis included intracranial insult, trauma, infection. CT of the head and C-spine were negative for acute injury. Her chest x-ray was normal. Urinalysis did not demonstrate an infection. As her labs started to come back it looks more like a septic picture with a white count of 23,000 and a lactate of 3. Some elevation in transaminases and her CK was up from being on the ground as well. Mild troponin leak in a range not currently consistent with ACS, more likely a stress reaction. Time of onset for sepsis was 1433 as her labs started to come back. There still was no source so an abdominal CT was ordered, especially in note of very mild transaminitis potentially suggesting a biliary etiology. Cefepime, vancomycin, metronidazole were ordered. Also 3 L of fluid given the elevated lactate and she does look quite dry on exam. Tried to call the son listed on the chart at the number, there was no answer and did not leave an option for leaving a voicemail. Spoke with Dr. Allred for admission at 4:49 PM. - Critical Care Time(min): 40 Time Includes: Direct patient care, Review records, Reassess patient, Document care, Coordinate care, Medical consult Data interpretation: Labs, Pulse ox Procedures included in critical care time: Peripheral IV Procedures excluded from critical care time: EKG - Sepsis Event Current Stage of Sepsis: Severe sepsis Possible source of Sepsis: GI tract/intra-abdominal, Unknown Mental/Cognitive Status: Confused Capillary refill: Less than 2 seconds Peripheral Pulse Strength: 2+ Slightly Diminished Peripheral Pulse Location: Radial Sepsis Comment: Severe sepsis of unknown source with encephalopathy. Not in septic "shock." Departure - Departure Disposition: 66 [facility] DC/Xfer Clinical Impression: Severe sepsis, Encephalopathy acute, Dehydration, Facial swelling Rhabdomyolysis Qualifiers: Rhabdomyolysis type: non-traumatic Qualified Code(s): M62.82 - Rhabdomyolysis Condition: Serious Discharge Date/Time: 01/30/20 18:30
[2020-01-30 13:29] LABS: GLUCOSE, URINE (UA) >=1000 mg/dL (NEGATIVE); KETONES,URINE (UA) 40 mg/dL (NEGATIVE); LEUKOCYTE ESTERASE, URINE NEGATIVE (NEGATIVE); NITRITE,URINE NEGATIVE (NEGATIVE); OCCULT BLOOD,URINE MODERATE (NEGATIVE); PH,URINE 5.5 PH (5.0-7.5); PROTEIN,URINE 100 mg/dL (NEGATIVE); UROBILINOGEN,URINE 0.2 (NORMAL) E.U./dL (NORMAL)
[2020-01-30 13:33] LABS: CLARITY,URINE CLEAR (CLEAR)
[2020-01-30 13:37] LABS: BACTERIA,URINE Few /HPF (None Seen); BILIRUBIN,URINE NEGATIVE (NEGATIVE); ICTOTEST,URINE NEGATIVE; SQUAMOUS EPITHELIAL CELL,UR RARE Squamous (<= Few)
--- NOTE | 2020-01-30 13:53 | CT Report ---
PROCEDURE: HEAD WO INDICATIONS: altered TECHNIQUE: Noncontrast 4.5 mm thick angled axial sections acquired from the foramen magnum to the vertex. For r adiation dose reduction, the following was used: automated exposure control, adjustment of mA and/or kV according to patient size. COMPARISON: None. FINDINGS: Image quality: Excellent. CSF spaces: Basal cisterns are patent. No extra-axial fluid collections. Ventricles are normal in size and shape. Brain: No midline shift. No intracranial masses or hemorrhage. Whitley-white matter interface is norm al. Skull and face: Calvarium and visualized facial bones are intact, without suspicious lesions. Sinuses: Visualized sinuses and mastoids are clear. IMPRESSION: No acute intracranial finding. Reviewed by: Harjit Espinoza MD on 01/30/2020 1:52 PM [facility] Approved by: Harjit Espinoza MD on 01/30/2020 1:52 PM [facility] Station ID: [id number]
--- NOTE | 2020-01-30 13:54 | CT Report ---
PROCEDURE: CERVICAL SPINE WO INDICATIONS: Trauma, fall TECHNIQUE: Noncontrast 3 mm thick sections acquired from the skull base to the T4 level. Sagittal and coronal r eformats were then constructed. For radiation dose reduction, the following was used: automated exp osure control, adjustment of mA and/or kV according to patient size. COMPARISON: None. FINDINGS: Image quality: Excellent. Bones: Extensive degenerative changes in the cervical spine. No fractures or dislocations. Visualize d superior ribs are intact. Soft tissues: Prevertebral soft tissues are normal in thickness. No paravertebral hematomas. No ap ical pneumothoraces. IMPRESSION: No CT evidence of acute cervical spine injury. Reviewed by: Harjit Espinoza MD on 01/30/2020 1:53 PM PST Approved by: Harjit Espinoza MD on 01/30/2020 1:53 PM PST Station ID: [id number]
--- NOTE | 2020-01-30 13:58 | XRAY Report ---
PROCEDURE: Chest 1 View X-Ray INDICATIONS: Chills TECHNIQUE: One view of the chest was acquired. COMPARISON: 03/25/2015 FINDINGS: Surgical changes and devices: None. Lungs and pleura: No pleural effusions or pneumothorax. Lungs are clear. Mediastinum: Mediastinal contours appear normal. Heart size is normal. Bones and chest wall: No suspicious bony lesions. Overlying soft tissues appear unremarkable. IMPRESSION: No acute cardiopulmonary process demonstrated radiographically. Reviewed by: Harjit Espinoza MD on 01/30/2020 1:57 PM [facility] Approved by: Harjit Espinoza MD on 01/30/2020 1:57 PM [facility] Station ID: [id number]
--- NOTE | 2020-01-30 13:58 | XRAY Report ---
PROCEDURE: Hip w/Pelvis 2-3V RT INDICATIONS: Hip pain status post fall TECHNIQUE: AP pelvis with lateral view(s) of the bilateral hip(s). COMPARISON: None. FINDINGS: Bones: No fractures or dislocations. Pelvic ring appears intact. No suspicious bony lesions. Soft tissues: The visualized bowel gas pattern is normal. No suspicious soft tissue calcifications. IMPRESSION: No right hip fracture demonstrated. Reviewed by: Harjit Espinoza MD on 01/30/2020 1:57 PM PST Approved by: Harjit Espinoza MD on 01/30/2020 1:57 PM PST Station ID: [id number]
[2020-01-30 14:06] LABS: BASOPHILS % (AUTO) 0.5 %; HGB - HEMOGLOBIN 14.9 g/dL (12.0-16.0); LYMPHOCYTES % (AUTO) 6.8 %; MEAN CORPUSCULAR HEMOGLOBIN 30.1 pg (27.0-31.0); MEAN CORPUSCULAR HGB CONC 33.6 g/dL (32.0-36.0); MEAN CORPUSCULAR VOLUME 89.7 fL (81.0-99.0); MEAN PLATELET VOLUME 9.9 fL (7.9-10.8); MONOCYTES % (AUTO) 6.7 %; PLT - PLATELET COUNT 375 10^3/uL (130-450); RED BLOOD COUNT 4.95 10^6/uL (4.20-5.40); RED CELL DISTRIBUTION WIDTH 14.7 % (12.0-15.0); WHITE BLOOD COUNT 23.7 x10^3/uL (4.8-10.8)
[2020-01-30 14:19] LABS: ABNORMAL LYMPHS % (MANUAL) 0 %
[2020-01-30 14:31] LABS: ALBUMIN 3.4 g/dL (3.2-5.5); ALBUMIN/GLOBULIN RATIO 0.9 (1.0-2.2); BILIRUBIN,TOTAL 1.2 mg/dL (0.2-1.0); CREATININE 1.2 mg/dL (0.4-1.0)
[2020-01-30] MEDS ORDERED: metroNIDAZOLE 500 MG/100 ML 500 MG/100 ML BAG IV STA (14:31)
[2020-01-30] MEDS ORDERED: CEFEPIME 2 GM in SODIUM CHLORIDE 0.9% MINIBAG 100 ML IV STA (14:31)
[2020-01-30] MEDS ORDERED: VANCOMYCIN INJ 1.25 GM in SODIUM CHLORIDE 0.9% 250 ML IV STA (14:31)
[2020-01-30] MEDS ORDERED: LACTATED RINGERS 2,000 ML IV STA (14:32)
[2020-01-30 14:38] LABS: BAND NEUTROPHILS % (MANUAL) 2 %; LYMPHOCYTES # (MANUAL) 1.9 10^3/uL (1.5-3.5); LYMPHOCYTES % (MANUAL) 7 %; MONOCYTES # (MANUAL) 1.4 10^3/uL (0.0-1.0)
[2020-01-30 14:39] LABS: DIFFERENTIAL COMMENT MANUAL DIFFERENTIAL; PLATELET ESTIMATE, MANUAL NORMAL (130-450,000) (NORMAL); PLATELET MORPHOLOGY NORMAL APPEARANCE (NORMAL); RBC MORPHOLOGY (MULTIPLE) NORMAL APPEARANCE (NORMAL)
[2020-01-30] MEDS ORDERED: VANCOMYCIN INJ 2 GM in SODIUM CHLORIDE 0.9% 500 ML IV SCH (15:00)
[2020-01-30 15:01] LABS: C. PNEUMONIAE- RESP PCR PANEL NOT DETECTED
[2020-01-30] MEDS ORDERED: IOVERSOL 320 100 ML VIAL IVP ONE ×2 (15:18→17:26)
--- NOTE | 2020-01-30 16:27 | CT Report ---
PROCEDURE: Abdomen/Pelvis W INDICATIONS: IV only, sepsis, unknown source CONTRAST: IV CONTRAST: Optiray 320 ml: 100 PO CONTRAST: *NO PO CONTRAST TECHNIQUE: After the administration of nonionic IV contrast, 5 mm thick sections acquired from the diaphragms to the symphysis. 5 mm thick coronal and sagittal reformats were acquired. For radiation dose reducti on, the following was used: automated exposure control, adjustment of mA and/or kV according to lianna ent size. COMPARISON: Correlation is made with the accompanying chest hip radiographs, 01/30/2020. FINDINGS: Image quality: There is streak artifact seen through the upper abdomen. ABDOMEN: Lung bases: Lung bases are clear. Heart size is normal. At least moderate coronary artery calcific ation is seen. Solid organs: Liver demonstrates normal size, without focal lesions. Diffuse fatty liver infiltration can be seen. The spleen demonstrates normal size, without focal lesions. Gallbladder wall does not appear thickened. Biliary system is non dilated. Pancreas enhances normally. The pancreas is larg estuardo fatty replaced No adrenal nodules. Kidneys demonstrate normal size and enhancement, without hyd ronephrosis. Peritoneum and bowel: There is focal wall thickening seen involving the duodenum. Minimal surroundin g inflammatory changes are seen. No free air or significant free fluid can be seen. No abscess collec tion is seen. Bowel loops otherwise demonstrate normal wall thickness and caliber. Nodes and vessels: No retroperitoneal or mesenteric adenopathy by size criteria. Aorta and inferior vena cava are normal in size. Miscellaneous: Superficial fatty stranding can be seen involving the anterior abdominal wall. A mild fat-containing periumbilical hernia is seen. PELVIS: Genitourinary: Bladder wall thickness is normal. The uterus demonstrates an unremarkable appearance for age. No adnexal masses are seen. Miscellaneous: No inguinal hernias or adenopathy. Bones: No focally suspicious bony lesions. However, the bones demonstrated diffusely irregular and o steopenic appearance. No vertebral body compression fractures. Mild dextroconvex scoliotic curvature is seen. Relatively prominent lumbar spine degenerative changes are seen. IMPRESSION: Focal wall thickening can be seen involving the duodenum. Please consider duodenitis. No findings of perforation or abscess are seen. Fatty stranding can be seen involving the superficial anterior abdominal wall, which is attributed to cellulitis. The bones demonstrate a diffusely irregular and osteopenic appearance, yet without focally suspicious lytic or blastic lesions. Please correlate with potential underlying metabolic disorder. Incidental note is made of: At least moderate coronary artery calcification Fatty liver infiltration Largely fatty infiltrated pancreas Fat-containing periumbilical hernia Reviewed by: Xu Moseley MD on 01/30/2020 3:26 PM [facility] Approved by: Xu Moseley MD on 01/30/2020 3:26 PM [facility] Station ID: [id number]
[2020-01-30] MEDS: SODIUM CHLORIDE 0.9% 1,000 ML IV SCH (19:22)
--- NOTE | 2020-01-30 19:42 | HISTORY & PHYSICAL EXAMINATION ---
Chief Complaint - Chief Complaint Chief Complaint: Altered mental status History of Present Illness - Admitted From Admitted From:: [facility] the ED - History Obtained From Records Reviewed: Yes History obtained from: Records and ED physician's note Exam Limitations: Altered mental status - History of Present Illness HPI Comment/Other: At the time of this visit/exam the HPI was limited because the patient is somewhat confused and unable to provide a reliable history. She thinks it is 2020 and is unable to tell what month of the year it is. She was confused about when she was an could not tell what led to her coming to the hospital. She is however oriented to self and can't accurately tell her date of . The patient is a 74-year-old female who was found naked on the ground in her house by her neighbor. It is unclear how long she had been on the ground but suspected to be as long as 3 days. The patient was unable to explain why she was on the ground or why she could not get up. At the time of presentation in the ED she complained of pain around her right eye and on her right hip. In the ED she was noted to have rigors. Work-up showed a WBC of 23.7, lactic acid of 3.0, creatinine kinase of 2358, creatinine 1.2, glucose 350. CT of the abdomen pelvis showed focal wall thickeningInvolving the duodenum for which duodenitis was suspected. There was no finding of perforation or abscess. Also fat stranding was noted in the superficial anterior abdominal wall for which cellulitis was suspected. As a result of the above she was presented for admission for further treatment. At bedside she is awake alert, appears to be resting comfortably. She denies chest pain, dyspnea, abdominal pain, nausea, vomiting, fever or chills. She appears to have weakness in her right lower extremity and upper extremity. Passive movement of her right extremities produces pain at the shoulder joint and the hip joint. She has some dysmetria when attempting to do dqrmbh-oo-viet test with the right hand. History - Past Medical History Cardiovascular: reports: Congestive heart failure, Hypertension, High cholesterol Respiratory: reports: Asthma, COPD, Sleep apnea, CPAP use Endocrine/Autoimmune: reports: Type 2 diabetes, HyPOthyroidism, Other GI: reports: Colon polyps, Chronic constipation CREDIT PROFESSIONAL: reports: Breast cancer : reports: Renal insuffiency HEENT: reports: Other Psych: reports: Depression, Eating disorder Musculoskeletal: reports: Osteoarthritis, Gout, Chronic back pain, Other Derm: reports: Other MRSA Hx?: No - Past Surgical History General: reports: Colonoscopy Ortho: reports: Knee replacement, Carpal Tunnel surgery, Other /CREDIT PROFESSIONAL: reports: Other (left breast lumpectomy 2014) HEENT: reports: Cataracts, Tonsil/Adenoidectomy - Family & Social History Family History Comment/Other: Family history is negative for malignancies ho wever a further detailed family history cannot be obtained at this time because the patient is somewhat confused. Social History Notes: According to previous records, the patient drinks alcohol occasionally. She is a former smoker who quit 10 years ago. She lives alone. She is a . Her in 1995 from complications of organ transplant. It is reported that she has children who live in [place] and would like her to move there. She has acknowledged in the past that her current living situation is becoming a little bit more difficult to manage but she did not wish to move at the time. 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 - POLST Patient has POLST: Yes POLST Status: Full Code Meds/Allgy - Home Medications Home Medications: Ambulatory Orders Medication Instructions Recorded Confirmed Levothyroxine Sodium [Levothroid] 125 mcg PO DAILY 09/25/12 09/02/19 Lovastatin [Mevacor] 40 mg PO DAILY 09/25/12 09/02/19 allopurinoL [Allopurinol] 100 mg PO DAILY 09/25/12 09/02/19 Furosemide [Lasix] 80 mg PO QAM 11/28/12 09/02/19 Insulin Aspart [Novolog] 25 unit SQ TID 11/28/12 09/02/19 Metformin HCl 1,000 mg PO BID 11/28/12 09/02/19 Potassium Chloride [Klor-Con 10] 40 meq PO DAILY 11/28/12 09/02/19 Aspirin [Aspir 81] 81 mg PO DAILY 07/16/13 09/02/19 Cholecalciferol (Vitamin D3) 5,000 unit PO DAILY 07/16/13 09/02/19 [Vitamin D3] Alprazolam 1 mg PO QPM PRN 10/08/13 09/02/19 Anastrozole 1 mg PO DAILY 03/25/15 09/02/19 buPROPion [Wellbutrin Sr] 200 mg PO BID 11/30/15 09/02/19 Insulin Glargine,Hum.rec.anlog 26 unit SUBQ DAILY 05/28/18 09/02/19 [Dorothy Pedro U-100] - Allergies Allergies/Adverse Reactions: Allergies Allergy/AdvReac Type Severity Reaction Status Date / Time lisinopril Allergy Intermediate low BP Verified 01/30/20 13:06 Penicillins Allergy Intermediate Unknown Verified 01/30/20 13:06 theophylline Allergy Intermediate Rash Verified 01/30/20 13:06 oxycodone Allergy Unknown Verified 01/30/20 13:06 aripiprazole [From Abilify] AdvReac Intermediate Depression Verified 01/30/20 13:06 clindamycin AdvReac Intermediate stomatitis Verified 01/30/20 13:06 losartan potassium * AdvReac Intermediate renal Verified 01/30/20 13:06 [From Cozaar] problems Review of Systems - Other Findings Other Findings: Review of system is currently limited because the patient is somewhat confused and unable to provide any reliable history. Currently she thinks it is 2020. She is unable to tell the month of the year. She does not know where she is and why she came to the hospital. Prior Level of Functionality: According to previous records, the patient drinks alcohol occasionally. She is a former smoker who quit 10 years ago. She lives alone. She is a . Her in 1995 from complications of organ transplant. It is reported that she has children who live in [place] and would like her to move there. She has acknowledged in the past that her current living situation is becoming a little bit more difficult to manage but she did not wish to move at the time. 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 Exam - Vital Signs Vital Signs: Vital Signs x48h Temp Pulse Pulse Resp BP BP Pulse Ox 01/30/20 19:02 36.6 C 98 18 140/66 H 99 01/30/20 18:00 100 21 151/91 H 99 01/30/20 17:00 98 21 183/91 H 100 01/30/20 16:00 36.2 C L 117 H 17 182/69 H 96 01/30/20 14:38 112 H 24 140/103 H 100 01/30/20 14:32 100 18 151/82 H 100 01/30/20 14:22 36.5 C 115 H 19 151/82 H 100 01/30/20 13:36 37.6 C 125 H 24 140/97 H 100 01/30/20 12:59 36.7 C 104 H 22 146/97 H 100 - Physical Exam General Appearance: positive: Alert, Mild distress, Moderate distress Eyes Bilateral: positive: PERRL, EOMI ENT: positive: Dry mucous membranes Neck: positive: No JVD, Trachea midline Respiratory: positive: Chest non-tender, No respiratory distress, Breath sounds nml. negative: Wheezes, Rales, Rhonchi Cardiovascular: positive: No murmur, Tachycardia Abdomen: positive: Non-tender, No organomegaly, Nml bowel sounds, No distention. negative: Guarding, Rebound Back: positive: Nml inspection Skin: positive: Color nml, No rash, Warm, Dry, Other (scabs on toes of feet bilaterally) Extremities: positive: No pedal edema, Other (right shoulder pain). negative: Full ROM Neurologic/Psychiatric: positive: Weakness (right sided weakness. Dysmetria on right side). negative: Oriented x3, Facial droop, Slurred/abnml speech Sepsis Event Note (H) - Evaluation Possible source of Sepsis: positive: GI tract/intra-abdominal, Unknown Conclusion/Plan - Problem List (1) Sepsis Conclusion/Plan: Likely secondary to abdominal wall cellulitis and possibly duodenitis. Patient's white blood cell count was 23, lactic acid 3.0. Patient was tachycardic and had rigors. Blood cultures were drawn. Patient was started on vancomycin, cefepime and Flagyl. Will continue. Patient is receiving IV hydration with normal saline at 125ml/hr. We will trend lactic acid. (2) Cellulitis of abdominal wall Conclusion/Plan: Blood cultures were drawn. Patient was started on vancomycin, cefepime and Flagyl. Will continue. Patient is receiving IV hydration with normal saline at 125ml/hr. We will trend lactic acid. (3) Diabetes mellitus Conclusion/Plan: Poorly controlled. Patient's blood glucose was in the 300s upon presentation. We will hold patient's Metformin which she takes 1000 mg p.o. twice daily Lantus 26 units subcu daily ordered. Sliding scale insulin, Accu-Cheks before every meal and at bedtime ordered. Hemoglobin A1c pending for the morning. Qualifiers: Diabetes mellitus type: type 2 (4) Hypothyroidism Conclusion/Plan: On Synthroid 125 mcg p.o. daily (5) Right sided weakness Conclusion/Plan: This could be due to the fact that the patient has been on the ground for an extended period of time versus possible CVA. X-ray of the hips and pelvis was negative for any fracture. X-ray of the right shoulder pending. We will manage patient's pain with Tylenol. CT of the head was negative for any acute intracranial process. Neurochecks every shift. If symptoms persist will do an MRI of the brain on Saturday. (6) Rhabdomyolysis Conclusion/Plan: Due to patient being on the ground for potentially 3 days. Patient receiving IV hydration with normal saline at 125 mils per hour. Creatinine kinase was 2356. We will trend creatinine kinase. Qualifiers: Rhabdomyolysis type: non-traumatic Qualified Code(s): M62.82 - Rhabdomyolys is (7) History of breast cancer Conclusion/Plan: Patient follows with Dr. Cirilo Ferrell. She was last seen by him on September 04 2019. Patient was diagnosed with stage I infiltrating ductal carcinoma of the left breast in 2014. She underwent lumpectomy with adjuvant radiation and has been on anastrozole since then. Follow-up was planned for approximately 1 year from the last visit with repeat mammogram and DEXA scan. (8) Hyperlipidemia Conclusion/Plan: On lovastatin at home 40 mg p.o. daily. We will order an equivalent statin on formulary once verified. (9) Dehydration Conclusion/Plan: Patient receiving IV hydration with normal saline. (10) Encephalopathy acute Conclusion/Plan: Possibly secondary to sepsis. However cannot rule out CVA We will monitor patient's mental status over the course of time. Anticipating improvement with treatment of her infection. Plan for a brain MRI on Saturday if symptoms persist. (11) Acute kidney injury Conclusion/Plan: Likely multifactorial. Secondary to sepsis, rhabdomyolysis and dehydration. Patient receiving IV hydration with normal saline. Anticipating improvement. However in light of rhabdomyolysis will not be surprised if renal function appears to worsen before improving. - Lab Results Fish Bones: 01/31/20 04:05 01/31/20 04:05 Core Measures - Anticipated LOS I expect patient to be DC'd or transferred within 96 hours.: Yes - DVT/VTE - Prophylaxis VTE/DVT Device ordered at admit?: Yes VTE/DVT Prophylaxis med ordered at admit?: Yes
[2020-01-30] MEDS ORDERED: SODIUM CHLORIDE FLUSH 0.9% 10 ML SYRINGE IVP PRN (20:17)
[2020-01-30] MEDS ORDERED: ONDANSETRON 4 MG/2 ML VIAL IVP PRN (20:17)
[2020-01-30] MEDS: metroNIDAZOLE 500 MG/100 ML 500 MG/100 ML BAG IV SCH (20:23)
[2020-01-30] MEDS ORDERED: INSULIN GLARGINE 300 UNIT/3 ML PEN SUBQ SCH (21:00)
--- NOTE | 2020-01-30 21:16 | XRAY Report ---
PROCEDURE: Shoulder 2 View RT INDICATIONS: RIGHT shoulder pain TECHNIQUE: 3 views of the shoulder were acquired. COMPARISON: 09/04/2015 right shoulder radiographs FINDINGS: Bones: Moderate to severe degenerative changes in the acromioclavicular and glenohumeral joint simila r to the prior study. No acute fracture. No suspicious bony lesions. Visualized ribs appear intact. Soft tissues: No suspicious soft tissue calcifications. IMPRESSION: No acute finding. Reviewed by: Harjit Espinoza MD on 01/30/2020 9:15 PM PST Approved by: Harjit Espinoza MD on 01/30/2020 9:15 PM PST Station ID: [id number]
[2020-01-30] MEDS: INSULIN ASPART 300 UNIT/3 ML PEN SUBQ SCH (21:40)
[2020-01-31] MEDS: SODIUM CHLORIDE FLUSH 0.9% 10 ML SYRINGE IVP SCH ×3 (00:38→16:47)
[2020-01-31] MEDS: CEFEPIME 2 GM in SODIUM CHLORIDE 0.9% MINIBAG 100 ML IV SCH ×2 (03:17→14:59)
[2020-01-31 04:12] LABS: BASOPHILS % (AUTO) 0.7 %; EOSINOPHILS % (AUTO) 1.1 %; HGB - HEMOGLOBIN 12.9 g/dL (12.0-16.0); LYMPHOCYTES % (AUTO) 13.7 %; MEAN CORPUSCULAR HEMOGLOBIN 29.6 pg (27.0-31.0); MEAN CORPUSCULAR HGB CONC 33.2 g/dL (32.0-36.0); MEAN CORPUSCULAR VOLUME 89.2 fL (81.0-99.0); MEAN PLATELET VOLUME 9.7 fL (7.9-10.8); NEUTROPHILS % (AUTO) 72.8 %; PLT - PLATELET COUNT 296 10^3/uL (130-450); RED BLOOD COUNT 4.36 10^6/uL (4.20-5.40); RED CELL DISTRIBUTION WIDTH 14.9 % (12.0-15.0); WHITE BLOOD COUNT 17.9 x10^3/uL (4.8-10.8)
[2020-01-31 04:20] LABS: ABNORMAL LYMPHS % (MANUAL) 0 %; BAND NEUTROPHILS % (MANUAL) 0 %
[2020-01-31 04:30] LABS: ALBUMIN 2.8 g/dL (3.2-5.5); BILIRUBIN,TOTAL 0.8 mg/dL (0.2-1.0); CALCIUM 9.2 mg/dL (8.5-10.3); PHOSPHORUS 1.8 mg/dL (2.5-4.6); TOTAL PROTEIN 5.7 g/dL (6.7-8.2)
[2020-01-31 04:35] LABS: DIFFERENTIAL COMMENT MANUAL DIFFERENTIAL; LYMPHOCYTES # (MANUAL) 1.4 10^3/uL (1.5-3.5); LYMPHOCYTES % (MANUAL) 8 %; MONOCYTES # (MANUAL) 1.3 10^3/uL (0.0-1.0); PLATELET ESTIMATE, MANUAL NORMAL (130-450,000) (NORMAL); PLATELET MORPHOLOGY NORMAL APPEARANCE (NORMAL); RBC MORPHOLOGY (MULTIPLE) NORMAL APPEARANCE (NORMAL)
[2020-01-31] MEDS ORDERED: POTASSIUM PHOSPHATE 15 MMOL in SODIUM CHLORIDE 0.9% 250 ML IV ONE (04:39)
[2020-01-31] MEDS: metroNIDAZOLE 500 MG/100 ML 500 MG/100 ML BAG IV SCH ×3 (05:07→21:23)
[2020-01-31] MEDS: LEVOTHYROXINE 125 MCG TABLET PO SCH (06:43)
[2020-01-31] MEDS: PANTOPRAZOLE 40 MG VIAL IVP SCH (06:43)
[2020-01-31] MEDS: SODIUM CHLORIDE 0.9% 1,000 ML IV SCH ×3 (06:48→18:21)
[2020-01-31] MEDS: INSULIN ASPART 300 UNIT/3 ML PEN SUBQ SCH ×5 (07:58→21:25)
[2020-01-31] MEDS ORDERED: NEUTRA-PHOS 250 MG TABLET PO SCH (08:00)
[2020-01-31] MEDS: ASPIRIN EC 81 MG TABLET PO SCH (08:44)
[2020-01-31] MEDS: ANASTROZOLE 1 MG TABLET PO SCH (08:44)
[2020-01-31] MEDS: ENOXAPARIN 40 MG/0.4 ML SYRINGE SUBQ SCH (08:44)
--- NOTE | 2020-01-31 09:21 | PHARMACY PROGRESS NOTE ---
- Best Possible Medication History Admit Date and Time: 01/30/20 1753 Processed by: Pharmacy Medication History completed: Yes Patient Interview: Completed Secondary Source(s): Pharmacy records, Insurance records (PATIENT INTERVIEWED BY PHARMACY. PATIENT CONFUSED ABOUT HOME MEDICATIONS. MEDICATION RECONCILIATION COMPLETED USING INSURANCE RECORDS ) As the person ultimately responsible for medication therapy, providers are able to order a medication from an existing home medication list in [facility] via the "Reconcile Routine" prior to Confirmation of that medication by residential direct support professional. Such practice is discouraged except when the physician, in their clinical judgment, deems that a medical need exists for a medication without regard to previous use.
[2020-01-31 11:03] LABS: HEMOGLOBIN A1c% 8.3 % (4.27-6.07)
--- NOTE | 2020-01-31 11:49 | PHARMACY PROGRESS NOTE ---
- Therapy Status Vancomycin regimen day #: 1 Therapy status: Awaiting steady state Basis for treatment: Empirical Treatment indication: SEPSIS; CELLULITIS OF ABD WALL Trough goal: 15-20 Concurrent antibiotics: CEFEPIME 2G Q12H + FLAGYL - JARROD Risk Risk level for Acute Kidney Injury: Moderate Acute Kidney Injury risk factors: Goal trough >15 - Monitoring and Recommendation Clinical response to treatment: I&O Previous 24 hours 01/29/20 01/30/20 01/31/20 23:59 23:59 23:59 Intake Total 4300 1520 Output Total 350 Balance 4300 1170 Lab Results 01/31/20 01/30/20 04:05 13:45 BUN 36 H 49 H Creatinine 1.0 1.2 H Estimated GFR (MDRD) 54 L 44 L Monitoring plan: Daily serum creatinine, Draw trough early (01/30 VANCOMYCIN INITIATED- SEPSIS; CELLULITIS ABD WALL 2G LOADING DOSE X1 IN ED MAINTENANCE DOSE: 2G Q24H T1/2 = ~18H SCR: 1.0MG/DL, CRCL: ~55ML/MIN (ADJ.BW) TROUGH SCHEDULED FOR 01/31 @ 1500 (BEFORE 3RD DOSE) MRSA PCR (+))
[2020-01-31] MEDS ORDERED: VANCOMYCIN INJ 0.75 GM in SODIUM CHLORIDE 0.9% 250 ML IV SCH (15:00)
[2020-01-31] MEDS: ACETAMINOPHEN 325 MG TABLET PO PRN ×2 (16:45→22:27)
[2020-01-31] MEDS: VANCOMYCIN INJ 2 GM in SODIUM CHLORIDE 0.9% 500 ML IV SCH (16:46)
--- NOTE | 2020-01-31 19:20 | PROVIDER PROGRESS NOTE ---
Assessment/Plan - Problem List (1) Sepsis Assessment/Plan: Patient is improving. White blood cell count improved from 23-17 and lactic acid is back to normal. We will continue vancomycin, cefepime and Flagyl. We will also continue IV hydration with normal saline at 125 mL/h. Blood cultures no growth to date. (2) Cellulitis of abdominal wall Assessment/Plan: Improving White blood cell count improved from 23-17 and lactic acid is back to normal. We will continue vancomycin, cefepime and Flagyl. We will also continue IV hydration with normal saline at 125 mL/h. Blood cultures no growth to date. (3) Diabetes mellitus Qualifiers: Diabetes mellitus type: type 2 Assessment/Plan: Poorly controlled. Patient's hemoglobin A1c was 8.3. Patient's Metformin has been held. Patient's sliding scale insulin was increased to the high dose. We will continue Lantus 26 units subcu daily. Sliding scale and Accu-Cheks ordered. (4) Hypothyroidism Assessment/Plan: On Synthroid 125 mcg p.o. daily (5) Right sided weakness Assessment/Plan: This is likely due to being on that side on the ground for possibly 3 days. She winces in pain when the right shoulder and right hip are passively taken through ranges of motion. We will manage pain as indicated. (6) Rhabdomyolysis Qualifiers: Rhabdomyolysis type: non-traumatic Qualified Code(s): M62.82 - Rhabdo myolysis Assessment/Plan: Improving. Patient's creatinine kinase improved from 2356 down to 1059. We will continue IV hydration with normal saline at 125 mils per hour. (7) History of breast cancer Assessment/Plan: Patient follows with Dr. Cirilo Ferrell. She was last seen by him on September 04 2019. Patient was diagnosed with stage I infiltrating ductal carcinoma of the left breast in 2014. She underwent lumpectomy with adjuvant radiation and has been on anastrozole since then. Follow-up was planned for approximately 1 year from the last visit with repeat mammogram and DEXA scan. (8) Hyperlipidemia Assessment/Plan: Atorvastatin ordered. (9) Dehydration Assessment/Plan: Improving/resolved with IV hydration. (10) Encephalopathy acute Assessment/Plan: Further interacting with the patient today it appears this could be baseline. Suspect patient likely has dementia. Patient is not able to tell me what she she is in. This is even after asking her to state her home address which she states completely with the city and state it She tells me her son lives in [place] but has a hard time remembering he lives in [place]. She is not in any distress. I discussed with patient about disposition once it is time for discharge. I pointed out that she is not a safe discharge to home and that she may not be able to continue living on her own. Citing what led to her presentation in the hospital and the fact that she is having significant difficulties remembering things. The patient acknowledges this and expresses that she will need to move in with one of her children. We will ask social work to reach out to patient's son who lives in [facility]. (11) Acute kidney injury Assessment/Plan: Resolved with IV hydration. Creatinine today was 1.0 with an estimated GFR 54. - Current Meds Current Meds: Current Medications Generic Name Dose Route Start Last Admin Trade Name Freq PRN Reason Stop Dose Admin Acetaminophen 650 mg 01/30/20 20:17 01/31/20 16:45 Tylenol PO 650 mg Q4HR PRN Administration Pain 1 to 4 Anastrozole 1 mg 01/31/20 09:00 01/31/20 08:44 Anastrozole PO 1 mg DAILY RAMAKRISHNA Administration Aspirin 81 mg 01/31/20 09:00 01/31/20 08:44 Ecotrin PO 81 mg DAILY RAMAKRISHNA Administration Enoxaparin Sodium 40 mg 01/31/20 09:00 01/31/20 08:44 Lovenox SUBQ 40 mg DAILY RAMAKRISHNA Administration Sodium Chloride 1,000 mls @ 125 mls/hr 01/30/20 18:00 01/31/20 18:50 Normal Saline 0.9% IV 125 mls/hr .Q8H RAMAKRISHNA Infusion Metronidazole 500 mg in 100 mls @ 100 mls/hr 01/30/20 21:00 01/31/20 13:25 Flagyl 500 Mg/100 Ml IV Infused Q8H RAMAKRISHNA Infusion Cefepime HCl 2 gm/ Sodium 100 mls @ 200 mls/hr 01/31/20 03:00 01/31/20 15:30 Chloride IV Infused Q12H RAMAKRISHNA Infusion Vancomycin HCl 2 gm/ Sodium 500 mls @ 250 mls/hr 01/31/20 16:00 01/31/20 18:50 Chloride IV Infused Q24H RAMAKRISHNA Infusion Insulin Aspart 2 - 10 unit 01/31/20 17:00 01/31/20 16:56 Novolog SUBQ 4 unit 0800,1200,1700,2100 RAMAKRISHNA Administration Protocol Levothyroxine Sodium 125 mcg 01/31/20 07:00 01/31/20 06:43 Synthroid PO 125 mcg QDAC RAMAKRISHNA Administration Pantoprazole Sodium 40 mg 01/31/20 07:00 01/31/20 06:43 Protonix IVP 40 mg QDAC RAMAKRISHNA Administration Sodium Chloride 10 ml 01/30/20 20:17 01/31/20 06:43 Normal Saline Flush 0.9% IVP 10 ml PRN PRN Administration NEEDED PER PROVIDER ORDERS Sodium Chloride 10 ml 01/31/20 01:00 01/31/20 16:47 Normal Saline Flush 0.9% IVP Not Given 0100,0900,1700 RAMAKRISHNA - Lab Result Fish Bone Diagrams: 01/31/20 04:05 01/31/20 04:05 - Additional Planning My Orders: My Active Orders 01/30/20 20:09 Neuro Check [RC] QSHIFT 01/30/20 20:17 Activity Orders [RC] Q2HR IO [RC] IOSHIFT Initiate Bowel Care Protocol [RC] .protocol Initiate Line Care Protocol [RC] QSHIFT Initiate Personal Care Protoco [RC] .protocol Oxygen Therapy [RC] Routine Acetaminophen [Tylenol] 650 mg PO Q4HR PRN Ondansetron Inj [Zofran Inj] 4 mg IVP Q6HR PRN Sodium Chloride Flush 0.9% [Normal Saline Flush 0.9%] 10 ml IVP PRN PRN Code Status [OTHERS] Routine Condition of Patient [OTHERS] Routine DVT Prophylaxis [OTHERS] Routine 01/30/20 20:20 SCDs [RC] QSHIFT 01/30/20 21:00 metroNIDAZOLE 500 MG/100 ML [Flagyl 500 mg/100 ml] 500 mg in 100 ml IV Q8H 01/31/20 01:00 Sodium Chloride Flush 0.9% [Normal Saline Flush 0.9%] 10 ml IVP 0100,0900,1700 01/31/20 03:00 Cefepime 2 gm Sodium Chloride 0.9% Minibag [Normal Saline 0.9% Minibag] 100 ml IV Q12H 01/31/20 07:00 Levothyroxine [Synthroid] 125 mcg PO QDAC Pantoprazole [Protonix] 40 mg IVP QDAC 01/31/20 09:00 Anastrozole 1 mg PO DAILY Aspirin EC [Ecotrin] 81 mg PO DAILY Enoxaparin [Lovenox] 40 mg SUBQ DAILY 01/31/20 21:00 Atorvastatin [Lipitor] 10 mg PO QPM 02/01/20 05:00 CBC - COMP BLD CT W/AUTO DIFF [HEME] DAILYLAB CK- CREATINE KINASE [CHEM] DAILYLAB COMPREHENSIVE METABOLIC PANEL [CHEM] DAILYLAB 02/02/20 05:00 CBC - COMP BLD CT W/AUTO DIFF [HEME] DAILYLAB CK- CREATINE KINASE [CHEM] DAILYLAB COMPREHENSIVE METABOLIC PANEL [CHEM] DAILYLAB 02/03/20 05:00 CBC - COMP BLD CT W/AUTO DIFF [HEME] DAILYLAB CK- CREATINE KINASE [CHEM] DAILYLAB COMPREHENSIVE METABOLIC PANEL [CHEM] DAILYLAB 02/04/20 05:00 CBC - COMP BLD CT W/AUTO DIFF [HEME] DAILYLAB CK- CREATINE KINASE [CHEM] DAILYLAB COMPREHENSIVE METABOLIC PANEL [CHEM] DAILYLAB Subjective - Subjective Patient Reports: Other (Patient was awake and alert at time of exam. She was resting comfortably in bed. She denied any chest pain, dyspnea, abdominal pain, nausea, vomiting, fever or chills. She tells me she talked to her son today but cannot remeber what they discussed.) Objective Vital Signs: Vital Signs - 24 hr 01/30/20 01/31/20 01/31/20 21:00 00:00 04:08 Temperature 36.5 C 36.7 C 36.5 C Heart Rate [ 95 97 89 Brachial] Respiratory 18 17 16 Rate Blood Pressure 144/53 H 129/58 L 147/55 H [Right Brachial artery] Blood Pressure [Right Radial artery] O2 Saturation 98 97 99 01/31/20 01/31/20 01/31/20 08:00 12:06 15:57 Temperature 36.7 C 36.4 C L 36.7 C Heart Rate [ 79 82 73 Brachial] Respiratory 20 16 18 Rate Blood Pressure [Right Brachial artery] Blood Pressure 141/55 H 141/44 H 131/40 H [Right Radial artery] O2 Saturation 98 100 97 Oxygen O2 Source [With Activity] Room air O2 Source Room air I&O (Last 24 Hrs): Intake and Output Totals x24h 01/29/20 01/30/20 01/31/20 23:59 23:59 23:59 Intake Total 4300 3220 Output Total 800 Balance 4300 2420 General: Alert, No acute distress HEENT: PERRLA, EOMI Neck: No JVD Neuro: Alert Cardiovascular: Regular rate, No murmurs Respiratory: No respiratory distress, Breath sounds nml Abdomen: Normal bowel sounds, Soft, No tenderness - Results Results: Laboratory Results WBC 17.9 x10^3/uL (4.8-10.8) H 01/31/20 04:05 RBC 4.36 10^6/uL (4.20-5.40) 01/31/20 04:05 Hgb 12.9 g/dL (12.0-16.0) 01/31/20 04:05 Hct 38.9 % (37.0-47.0) 01/31/20 04:05 MCV 89.2 fL (81.0-99.0) 01/31/20 04:05 MCH 29.6 pg (27.0-31.0) 01/31/20 04:05 MCHC 33.2 g/dL (32.0-36.0) 01/31/20 04:05 RDW 14.9 % (12.0-15.0) 01/31/20 04:05 Plt Count 296 10^3/uL (130-450) 01/31/20 04:05 MPV 9.7 fL (7.9-10.8) 01/31/20 04:05 Neut # (Auto) Not Reportable 01/31/20 04:05 Lymph # (Auto) Not Reportable 01/31/20 04:05 [place] # (Auto) Not Reportable 01/31/20 04:05 Eos # (Auto) Not Reportable 01/31/20 04:05 Baso # (Auto) Not Reportable 01/31/20 04:05 Absolute Nucleated RBC Not Reportable 01/31/20 04:05 Total Counted 100 01/31/20 04:05 Band Neuts % (Manual) 0 % (0-10) 01/31/20 04:05 Reactive Lymphs % (Man) 1 % 01/30/20 13:45 Abnorm Lymph % (Manual) 0 % 01/31/20 04:05 Nucleated RBC % Not Reportable 01/31/20 04:05 Neutrophils # (Manual) 15.2 10^3/uL (1.5-6.6) H 01/31/20 04:05 Lymphocytes # (Manual) 1.4 10^3/uL (1.5-3.5) L 01/31/20 04:05 Monocytes # (Manual) 1.3 10^3/uL (0.0-1.0) H 01/31/20 04:05 Eosinophils # (Manual) 0.0 10^3/uL (0-0.7) 01/31/20 04:05 Basophils # (Manual) 0.0 10^3/uL (0-0.1) 01/31/20 04:05 Differential Comment MANUAL DIFFERENTIAL 01/31/20 04:05 WBC Morphology NORMAL APPEARANCE (NORMAL) 01/31/20 04:05 Platelet Estimate NORMAL (130-450,000) (NORMAL) 01/31/20 04:05 Platelet Morphology NORMAL APPEARANCE (NORMAL) 01/31/20 04:05 RBC Morph Micro Appear NORMAL APPEARANCE (NORMAL) 01/31/20 04:05 Sodium 144 mmol/L (135-145) 01/31/20 04:05 Potassium 3.1 mmol/L (3.5-5.0) L 01/31/20 04:05 Chloride 111 mmol/L (101-111) 01/31/20 04:05 Carbon Dioxide 22 mmol/L (21-32) 01/31/20 04:05 Anion Gap 11.0 (6-13) 01/31/20 04:05 BUN 36 mg/dL (6-20) H 01/31/20 04:05 Creatinine 1.0 mg/dL (0.4-1.0) 01/31/20 04:05 Estimated GFR (MDRD) 54 (>89) L 01/31/20 04:05 Glucose 319 mg/dL (70-100) H 01/31/20 04:05 POC Whole Bld Glucose 184 mg/dL (70 - 100) H 01/31/20 16:47 Estimat Average Glucose 192 mg/dL (70-100) H 01/30/20 13:45 Hemoglobin A1c % 8.3 % (4.27-6.07) H 01/30/20 13:45 Lactic Acid 1.8 mmol/L (0.5-2.2) 01/31/20 18:35 Calcium 9.2 mg/dL (8.5-10.3) 01/31/20 04:05 Phosphorus 1.8 mg/dL (2.5-4.6) L 01/31/20 04:05 Magnesium 2.0 mg/dL (1.7-2.8) 01/31/20 04:05 Total Bilirubin 0.8 mg/dL (0.2-1.0) 01/31/20 04:05 AST 54 IU/L (10-42) H 01/31/20 04:05 ALT 60 IU/L (10-60) 01/31/20 04:05 Alkaline Phosphatase 62 IU/L (42-121) 01/31/20 04:05 Total Creatine Kinase 1059 IU/L (22-269) H* 01/31/20 04:05 Troponin I High Sens 35.0 ng/L (2.3-14.8) H* 01/31/20 02:33 Total Protein 5.7 g/dL (6.7-8.2) L 01/31/20 04:05 Albumin 2.8 g/dL (3.2-5.5) L 01/31/20 04:05 Globulin 2.9 g/dL (2.1-4.2) 01/31/20 04:05 Albumin/Globulin Ratio 1.0 (1.0-2.2) 01/31/20 04:05 TSH 0.99 uIU/mL (0.34-5.60) 01/30/20 13:45 Urine Color YELLOW 01/30/20 13:15 Urine Clarity CLEAR (CLEAR) 01/30/20 13:15 Urine pH 5.5 PH (5.0-7.5) 01/30/20 13:15 Ur Specific [place] >=1.030 (1.002-1.030) H 01/30/20 13:15 Urine Protein 100 mg/dL (NEGATIVE) H 01/30/20 13:15 Urine Glucose (UA) >=1000 mg/dL (NEGATIVE) H 01/30/20 13:15 Urine Ketones 40 mg/dL (NEGATIVE) H 01/30/20 13:15 Urine Occult Blood MODERATE (NEGATIVE) H 01/30/20 13:15 Urine Nitrite NEGATIVE (NEGATIVE) 01/30/20 13:15 Urine Bilirubin NEGATIVE (NEGATIVE) 01/30/20 13:15 Urine Urobilinogen 0.2 (NORMAL) E.U./dL (NORMAL) 01/30/20 13:15 Ur Leukocyte Esterase NEGATIVE (NEGATIVE) 01/30/20 13:15 Urine RBC 11-25 /HPF (0-5) H 01/30/20 13:15 Urine WBC 4-5 /HPF (0-5) 01/30/20 13:15 Ur Squamous Epith Cells RARE Squamous (<= Few) 01/30/20 13:15 Urine Bacteria Few /HPF (None Seen) 01/30/20 13:15 Urine Culture Comments NOT INDICATED 01/30/20 13:15 Nasal Adenovirus (PCR) NOT DETECTED 01/30/20 13:45 Nasal B. parapertussis DNA (PCR) NOT DETECTED 01/30/20 13:45 Nasal Coronavir 229E PCR NOT DETECTED 01/30/20 13:45 Nasal Coronavir HKU1 PCR NOT DETECTED 01/30/20 13:45 Nasal Coronavir NL63 PCR NOT DETECTED 01/30/20 13:45 Nasal Coronavir OC43 PCR NOT DETECTED 01/30/20 13:45 Nasal Enterovir/Rhinovir PCR NOT DETECTED 01/30/20 13:45 Nasal Influenza B PCR NOT DETECTED 01/30/20 13:45 Nasal Influenza A PCR NOT DETECTED 01/30/20 13:45 Nasal Parainfluen 1 PCR NOT DETECTED 01/30/20 13:45 Nasal Parainfluen 2 PCR NOT DETECTED 01/30/20 13:45 Nasal Parainfluen 3 PCR NOT DETECTED 01/30/20 13:45 Nasal Parainfluen 4 PCR NOT DETECTED 01/30/20 13:45 Nasal RSV (PCR) NOT DETECTED 01/30/20 13:45 Nasal Screen MRSA (PCR) POSITIVE (NEGATIVE) A* 01/31/20 08:20 Nasal B.pertussis DNA PCR NOT DETECTED 01/30/20 13:45 Nasal C.pneumoniae (PCR) NOT DETECTED 01/30/20 13:45 Kadeem Human Metapneumo PCR NOT DETECTED 01/30/20 13:45 Nasal M.pneumoniae (PCR) NOT DETECTED 01/30/20 13:45 Nasal SARS-CoV-2 (PCR) NOT DETECTED 01/30/20 13:45 - Procedures Procedures: Procedures ENDOSC POLYPECTOMY OF LG INTEST (09/26/12) EXCISE AXILLARY NODE (06/29/14) EXCISION OF NIPPLE (08/09/14) EXPLOR TEND SHEATH-HAND (01/21/14) LOCAL EXCIS BREAST LES (06/29/14) OTHER LOCAL DESTRUC SKIN (08/09/14) TOTAL KNEE REPLACEMENT (10/13/13) Sepsis Event Note (H) - Evaluation Possible source of Sepsis: positive: GI tract/intra-abdominal, Unknown ABX Reporting Has patient been on IV antibiotics over the past 48 hours?: Yes
[2020-01-31] MEDS: ethyl alcohoL 62% SWAB AMPULE NAS SCH (21:23)
[2020-01-31] MEDS: ATORVASTATIN 10 MG TABLET PO SCH (21:23)
[2020-01-31] MEDS: INSULIN GLARGINE 300 UNIT/3 ML PEN SUBQ SCH (21:24)
[2020-02-01] MEDS: NYSTATIN CREAM 15 GM TUBE TOP SCH
[2020-02-01] MEDS: SODIUM CHLORIDE FLUSH 0.9% 10 ML SYRINGE IVP SCH ×3 (00:06→16:48)
[2020-02-01] MEDS: ACETAMINOPHEN 325 MG TABLET PO PRN (02:31)
[2020-02-01] MEDS: CEFEPIME 2 GM in SODIUM CHLORIDE 0.9% MINIBAG 100 ML IV SCH ×2 (02:38→14:21)
[2020-02-01] MEDS: SODIUM CHLORIDE 0.9% 1,000 ML IV SCH ×2 (03:51→07:59)
[2020-02-01] MEDS: metroNIDAZOLE 500 MG/100 ML 500 MG/100 ML BAG IV SCH ×3 (05:00→20:46)
[2020-02-01 05:52] LABS: BASOPHILS # (AUTO) 0.1 10^3/uL (0.0-0.1); BASOPHILS % (AUTO) 0.9 %; EOSINOPHILS # (AUTO) 0.6 10^3/uL (0.0-0.7); EOSINOPHILS % (AUTO) 5.1 %; HGB - HEMOGLOBIN 11.1 g/dL (12.0-16.0); LYMPHOCYTES # (AUTO) 2.7 10^3/uL (1.5-3.5); LYMPHOCYTES % (AUTO) 24.3 %; MEAN CORPUSCULAR HEMOGLOBIN 30.5 pg (27.0-31.0); MEAN CORPUSCULAR HGB CONC 33.3 g/dL (32.0-36.0); MEAN CORPUSCULAR VOLUME 91.5 fL (81.0-99.0); MEAN PLATELET VOLUME 9.5 fL (7.9-10.8); MONOCYTES # (AUTO) 1.2 10^3/uL (0.0-1.0); MONOCYTES % (AUTO) 10.9 %; NEUTROPHILS # (AUTO) 6.3 10^3/uL (1.5-6.6); NEUTROPHILS % (AUTO) 57.5 %; PLT - PLATELET COUNT 231 10^3/uL (130-450); RED BLOOD COUNT 3.64 10^6/uL (4.20-5.40); RED CELL DISTRIBUTION WIDTH 15.3 % (12.0-15.0); WHITE BLOOD COUNT 10.9 x10^3/uL (4.8-10.8)
[2020-02-01 06:05] LABS: ALBUMIN 2.5 g/dL (3.2-5.5); BILIRUBIN,TOTAL 0.8 mg/dL (0.2-1.0); CALCIUM 8.7 mg/dL (8.5-10.3); CREATININE 0.9 mg/dL (0.4-1.0)
[2020-02-01] MEDS: LEVOTHYROXINE 125 MCG TABLET PO SCH (06:28)
[2020-02-01] MEDS: PANTOPRAZOLE 40 MG VIAL IVP SCH (06:29)
[2020-02-01] MEDS ORDERED: POTASSIUM CHLORIDE 20 MEQ TABLET PO ONE (07:29)
[2020-02-01] MEDS: POTASSIUM CHLOR 10 MEQ/100 ML 10 MEQ/100 ML BAG IV SCH ×4 (07:49→11:07)
[2020-02-01] MEDS: INSULIN ASPART 300 UNIT/3 ML PEN SUBQ SCH ×5 (07:50→20:50)
--- NOTE | 2020-02-01 07:51 | PROVIDER PROGRESS NOTE ---
Assessment/Plan - Problem List (1) Sepsis Assessment/Plan: Patient is improving. White blood cell count improved from 17-10.9 and lactic acid is back to normal. We will continue vancomycin, cefepime and Flagyl.IV hydration decreased to 75 mL/h due to puffiness in her hands. We will also continue IV hydration with normal saline at 125 mL/h. Blood cultures no growth to date. (2) Cellulitis of abdominal wall Assessment/Plan: Improving White blood cell count improved from 17-10.9 and lactic acid is back to normal. We will continue vancomycin, cefepime and Flagyl. We will also continue IV hydration with normal saline at 75 mL/h. Blood cultures no growth to date. (3) Diabetes mellitus Qualifiers: Diabetes mellitus type: type 2 Assessment/Plan: Poorly controlled. Patient's hemoglobin A1c was 8.3. Patient's Metformin has been held. Patient's sliding scale insulin was increased to the high dose. We will continue Lantus 26 units subcu daily. Sliding scale and Accu-Cheks ordered. Diabetic education ordered. (5) Right sided weakness Assessment/Plan: This is likely due to being on that side on the ground for possibly 3 days. She winces in pain when the right shoulder and right hip are passively taken through ranges of motion. We will manage pain as indicated. (6) Rhabdomyolysis Qualifiers: Rhabdomyolysis type: non-traumatic Qualified Code(s): M62.82 - Rhabdomyolysis Assessment/Plan: Improving. Patient's creatinine kinase improved from 1059 to 330. We will continue IV hydration with normal saline at 75 mils per hour. (8) Hyperlipidemia Assessment/Plan: Atorvastatin ordered. (10) Encephalopathy acute Assessment/Plan: Further interacting with the patient today it appears this could be baseline. Suspect patient likely has dementia. Patient is not able to tell me what she she is in. This is even after asking her to state her home address which she states completely with the city and state it She tells me her son lives in [place] but has a hard time remembering he lives in [place]. She is not in any distress. I discussed with patient about disposition once it is time for discharge. I pointed out that she is not a safe discharge to home and that she may not be able to continue living on her own. Citing what led to her presentation in the hospital and the fact that she is having significant difficulties remembering things. The patient acknowledges this and expresses that she will need to move in with one of her children. We will ask social work to reach out to patient's son who lives in [facility]. (11) Acute kidney injury Assessment/Plan: Resolved with IV hydration. Creatinine today was 1.0 with an estimated GFR 54. - Current Meds Current Meds: Current Medications Generic Name Dose Route Start Last Admin Trade Name Freq PRN Reason Stop Dose Admin Acetaminophen 650 mg 01/30/20 20:17 02/01/20 02:31 Tylenol PO 650 mg Q4HR PRN Administration Pain 1 to 4 Alcohol 1 amp 01/31/20 21:00 01/31/20 21:23 Nozin LUCINDA 1 amp BID RAMAKRISHNA Administration Anastrozole 1 mg 01/31/20 09:00 01/31/20 08:44 Anastrozole PO 1 mg DAILY RAMAKRISHNA Administration Aspirin 81 mg 01/31/20 09:00 01/31/20 08:44 Ecotrin PO 81 mg DAILY RAMAKRISHNA Administration Atorvastatin Calcium 10 mg 01/31/20 21:00 01/31/20 21:23 Lipitor PO 10 mg QPM RAMAKRISHNA Administration Enoxaparin Sodium 40 mg 01/31/20 09:00 01/31/20 08:44 Lovenox SUBQ 40 mg DAILY RAMAKRISHNA Administration Metronidazole 500 mg in 100 mls @ 100 mls/hr 01/30/20 21:00 02/01/20 06:20 Flagyl 500 Mg/100 Ml IV Infused Q8H RAMAKRISHNA Infusion Cefepime HCl 2 gm/ Sodium 100 mls @ 200 mls/hr 01/31/20 03:00 02/01/20 03:14 Chloride IV Infused Q12H RAMAKRISHNA Infusion Vancomycin HCl 2 gm/ Sodium 500 mls @ 250 mls/hr 01/31/20 16:00 01/31/20 18:50 Chloride IV Infused Q24H RAMAKRISHNA Infusion Insulin Aspart 2 - 10 unit 01/31/20 17:00 01/31/20 21:25 Novolog SUBQ 6 unit 0800,1200,1700,2100 RAMAKRISHNA Administration Protocol Insulin Glargine 26 unit 01/31/20 21:00 01/31/20 21:24 Lantus Solostar SUBQ 26 unit QPM RAMAKRISHNA Administration Levothyroxine Sodium 125 mcg 01/31/20 07:00 02/01/20 06:28 Synthroid PO 125 mcg QDAC RAMAKRISHNA Administration Pantoprazole Sodium 40 mg 01/31/20 07:00 02/01/20 06:29 Protonix IVP 40 mg QDAC RAMAKRISHNA Administration Sodium Chloride 10 ml 01/30/20 20:17 01/31/20 06:43 Normal Saline Flush 0.9% IVP 10 ml PRN PRN Administration NEEDED PER PROVIDER ORDERS Sodium Chloride 10 ml 01/31/20 01:00 02/01/20 00:06 Normal Saline Flush 0.9% IVP 10 ml 0100,0900,1700 RAMAKRISHNA Administration - Lab Result Fish Bone Diagrams: 02/01/20 05:49 02/01/20 05:49 - Additional Planning My Orders: My Active Orders 01/31/20 07:00 Levothyroxine [Synthroid] 125 mcg PO QDAC Pantoprazole [Protonix] 40 mg IVP QDAC 01/31/20 09:00 Anastrozole 1 mg PO DAILY Aspirin EC [Ecotrin] 81 mg PO DAILY Enoxaparin [Lovenox] 40 mg SUBQ DAILY 01/31/20 20:32 Blood Glucose Checks - Eating [RC] 0800,1200,1700,2100 Initiate Hypoglycemia Protocol [RC] .protocol 01/31/20 21:00 Atorvastatin [Lipitor] 10 mg PO QPM Insulin Glargine [Lantus Solostar] 26 unit SUBQ QPM 02/01/20 07:45 MAGNESIUM [CHEM] Stat Sodium Chloride 0.9% [Normal Saline 0.9%] 1,000 ml IV 75 mls/hr 02/01/20 08:00 Potassium Chloride/Water 10 mEq/100 mL q1h (Enter # of bags) Potassium Chlor 10 Meq/100 ml [Potassium Chloride] 10 meq in 100 ml IV Q1H 02/02/20 05:00 CBC - COMP BLD CT W/AUTO DIFF [HEME] DAILYLAB CK- CREATINE KINASE [CHEM] DAILYLAB COMPREHENSIVE METABOLIC PANEL [CHEM] DAILYLAB 02/03/20 05:00 CBC - COMP BLD CT W/AUTO DIFF [HEME] DAILYLAB CK- CREATINE KINASE [CHEM] DAILYLAB COMPREHENSIVE METABOLIC PANEL [CHEM] DAILYLAB 02/04/20 05:00 CBC - COMP BLD CT W/AUTO DIFF [HEME] DAILYLAB CK- CREATINE KINASE [CHEM] DAILYLAB COMPREHENSIVE METABOLIC PANEL [CHEM] DAILYLAB Subjective - Subjective Patient Reports: Other (Patient seen and examined this morning. She was resting comfortably in bed at time of exam. She denied any complaints except for increased thirst tenderness. She denied chest pain, dyspnea, abdominal pain, nausea, vomiting.) Objective Vital Signs: Vital Signs - 24 hr 01/31/20 01/31/20 01/31/20 08:00 12:06 15:57 Temperature 36.7 C 36.4 C L 36.7 C Heart Rate [ 79 82 73 Brachial] Respiratory 20 16 18 Rate Blood Pressure [Left Radial artery] Blood Pressure [Right Brachial artery] Blood Pressure 141/55 H 141/44 H 131/40 H [Right Radial artery] O2 Saturation 98 100 97 01/31/20 01/31/20 01/31/20 21:00 23:50 23:56 Temperature 37.0 C 36.6 C 36.6 C Heart Rate [ 72 67 60 Brachial] Respiratory 18 18 17 Rate Blood Pressure [Left Radial artery] Blood Pressure 120/47 L [Right Brachial artery] Blood Pressure 140/49 H 140/49 H [Right Radial artery] O2 Saturation 94 96 96 02/01/20 03:58 Temperature 36.6 C Heart Rate [ 64 Brachial] Respiratory 17 Rate Blood Pressure 123/41 L [Left Radial artery] Blood Pressure [Right Brachial artery] Blood Pressure [Right Radial artery] O2 Saturation 94 Oxygen O2 Source [With Activity] Room air O2 Source Room air I&O (Last 24 Hrs): Intake and Output Totals x24h 01/30/20 01/31/20 02/01/20 23:59 23:59 23:59 Intake Total 4300 4638.75 1172.916 Output Total 800 Balance 4300 3838.75 1172.916 General: Alert, Cooperative, Other (Mostly oriented to self. Very forgetful about the location where she is or the reason for presentation. However she can carry out an intelligible conversation.) HEENT: PERRLA, EOMI Neck: Supple, No JVD Neuro: Alert Cardiovascular: Regular rate, No murmurs Respiratory: Chest non-tender, No respiratory distress, Breath sounds nml Abdomen: Normal bowel sounds, Soft, No tenderness Extremities: Other (Puffiness/swelling in hands) - Results Results: Laboratory Results WBC 10.9 x10^3/uL (4.8-10.8) H 02/01/20 05:49 RBC 3.64 10^6/uL (4.20-5.40) L 02/01/20 05:49 Hgb 11.1 g/dL (12.0-16.0) L 02/01/20 05:49 Hct 33.3 % (37.0-47.0) L 02/01/20 05:49 MCV 91.5 fL (81.0-99.0) 02/01/20 05:49 MCH 30.5 pg (27.0-31.0) 02/01/20 05:49 MCHC 33.3 g/dL (32.0-36.0) 02/01/20 05:49 RDW 15.3 % (12.0-15.0) H 02/01/20 05:49 Plt Count 231 10^3/uL (130-450) 02/01/20 05:49 MPV 9.5 fL (7.9-10.8) 02/01/20 05:49 Neut # (Auto) 6.3 10^3/uL (1.5-6.6) 02/01/20 05:49 Lymph # (Auto) 2.7 10^3/uL (1.5-3.5) 02/01/20 05:49 [place] # (Auto) 1.2 10^3/uL (0.0-1.0) H 02/01/20 05:49 Eos # (Auto) 0.6 10^3/uL (0.0-0.7) 02/01/20 05:49 Baso # (Auto) 0.1 10^3/uL (0.0-0.1) 02/01/20 05:49 Absolute Nucleated RBC 0.00 x10^3/uL 02/01/20 05:49 Total Counted 100 01/31/20 04:05 Band Neuts % (Manual) 0 % (0-10) 01/31/20 04:05 Reactive Lymphs % (Man) 1 % 01/30/20 13:45 Abnorm Lymph % (Manual) 0 % 01/31/20 04:05 Nucleated RBC % 0.0 /100WBC 02/01/20 05:49 Neutrophils # (Manual) 15.2 10^3/uL (1.5-6.6) H 01/31/20 04:05 Lymphocytes # (Manual) 1.4 10^3/uL (1.5-3.5) L 01/31/20 04:05 Monocytes # (Manual) 1.3 10^3/uL (0.0-1.0) H 01/31/20 04:05 Eosinophils # (Manual) 0.0 10^3/uL (0-0.7) 01/31/20 04:05 Basophils # (Manual) 0.0 10^3/uL (0-0.1) 01/31/20 04:05 Differential Comment MANUAL DIFFERENTIAL 01/31/20 04:05 WBC Morphology NORMAL APPEARANCE (NORMAL) 01/31/20 04:05 Platelet Estimate NORMAL (130-450,000) (NORMAL) 01/31/20 04:05 Platelet Morphology NORMAL APPEARANCE (NORMAL) 01/31/20 04:05 RBC Morph Micro Appear NORMAL APPEARANCE (NORMAL) 01/31/20 04:05 Sodium 142 mmol/L (135-145) 02/01/20 05:49 Potassium 2.8 mmol/L (3.5-5.0) L 02/01/20 05:49 Chloride 113 mmol/L (101-111) H 02/01/20 05:49 Carbon Dioxide 21 mmol/L (21-32) 02/01/20 05:49 Anion Gap 8.0 (6-13) 02/01/20 05:49 BUN 23 mg/dL (6-20) H 02/01/20 05:49 Creatinine 0.9 mg/dL (0.4-1.0) 02/01/20 05:49 Estimated GFR (MDRD) 61 (>89) L 02/01/20 05:49 Glucose 203 mg/dL (70-100) H 02/01/20 05:49 POC Whole Bld Glucose 190 mg/dL (70 - 100) H 02/01/20 07:39 Estimat Average Glucose 192 mg/dL (70-100) H 01/30/20 13:45 Hemoglobin A1c % 8.3 % (4.27-6.07) H 01/30/20 13:45 Lactic Acid 1.8 mmol/L (0.5-2.2) 01/31/20 18:35 Calcium 8.7 mg/dL (8.5-10.3) 02/01/20 05:49 Phosphorus 1.8 mg/dL (2.5-4.6) L 01/31/20 04:05 Magnesium 2.0 mg/dL (1.7-2.8) 01/31/20 04:05 Total Bilirubin 0.8 mg/dL (0.2-1.0) 02/01/20 05:49 AST 32 IU/L (10-42) 02/01/20 05:49 ALT 44 IU/L (10-60) 02/01/20 05:49 Alkaline Phosphatase 50 IU/L (42-121) 02/01/20 05:49 Total Creatine Kinase 330 IU/L (22-269) H 02/01/20 05:49 Troponin I High Sens 35.0 ng/L (2.3-14.8) H* 01/31/20 02:33 Total Protein 5.0 g/dL (6.7-8.2) L 02/01/20 05:49 Albumin 2.5 g/dL (3.2-5.5) L 02/01/20 05:49 Globulin 2.5 g/dL (2.1-4.2) 02/01/20 05:49 Albumin/Globulin Ratio 1.0 (1.0-2.2) 02/01/20 05:49 TSH 0.99 uIU/mL (0.34-5.60) 01/30/20 13:45 Urine Color YELLOW 01/30/20 13:15 Urine Clarity CLEAR (CLEAR) 01/30/20 13:15 Urine pH 5.5 PH (5.0-7.5) 01/30/20 13:15 Ur Specific [place] >=1.030 (1.002-1.030) H 01/30/20 13:15 Urine Protein 100 mg/dL (NEGATIVE) H 01/30/20 13:15 Urine Glucose (UA) >=1000 mg/dL (NEGATIVE) H 01/30/20 13:15 Urine Ketones 40 mg/dL (NEGATIVE) H 01/30/20 13:15 Urine Occult Blood MODERATE (NEGATIVE) H 01/30/20 13:15 Urine Nitrite NEGATIVE (NEGATIVE) 01/30/20 13:15 Urine Bilirubin NEGATIVE (NEGATIVE) 01/30/20 13:15 Urine Urobilinogen 0.2 (NORMAL) E.U./dL (NORMAL) 01/30/20 13:15 Ur Leukocyte Esterase NEGATIVE (NEGATIVE) 01/30/20 13:15 Urine RBC 11-25 /HPF (0-5) H 01/30/20 13:15 Urine WBC 4-5 /HPF (0-5) 01/30/20 13:15 Ur Squamous Epith Cells RARE Squamous (<= Few) 01/30/20 13:15 Urine Bacteria Few /HPF (None Seen) 01/30/20 13:15 Urine Culture Comments NOT INDICATED 01/30/20 13:15 Nasal Adenovirus (PCR) NOT DETECTED 01/30/20 13:45 Nasal B. parapertussis DNA (PCR) NOT DETECTED 01/30/20 13:45 Nasal Coronavir 229E PCR NOT DETECTED 01/30/20 13:45 Nasal Coronavir HKU1 PCR NOT DETECTED 01/30/20 13:45 Nasal Coronavir NL63 PCR NOT DETECTED 01/30/20 13:45 Nasal Coronavir OC43 PCR NOT DETECTED 01/30/20 13:45 Nasal Enterovir/Rhinovir PCR NOT DETECTED 01/30/20 13:45 Nasal Influenza B PCR NOT DETECTED 01/30/20 13:45 Nasal Influenza A PCR NOT DETECTED 01/30/20 13:45 Nasal Parainfluen 1 PCR NOT DETECTED 01/30/20 13:45 Nasal Parainfluen 2 PCR NOT DETECTED 01/30/20 13:45 Nasal Parainfluen 3 PCR NOT DETECTED 01/30/20 13:45 Nasal Parainfluen 4 PCR NOT DETECTED 01/30/20 13:45 Nasal RSV (PCR) NOT DETECTED 01/30/20 13:45 Nasal Screen MRSA (PCR) POSITIVE (NEGATIVE) A* 01/31/20 08:20 Nasal B.pertussis DNA PCR NOT DETECTED 01/30/20 13:45 Nasal C.pneumoniae (PCR) NOT DETECTED 01/30/20 13:45 [place] Human Metapneumo PCR NOT DETECTED 01/30/20 13:45 Nasal M.pneumoniae (PCR) NOT DETECTED 01/30/20 13:45 Nasal SARS-CoV-2 (PCR) NOT DETECTED 01/30/20 13:45 - Procedures Procedures: Procedures ENDOSC POLYPECTOMY OF LG INTEST (09/26/12) EXCISE AXILLARY NODE (06/29/14) EXCISION OF NIPPLE (06/01/15) EXPLOR TEND SHEATH-HAND (01/21/14) LOCAL EXCIS BREAST LES (06/29/14) OTHER LOCAL DESTRUC SKIN (08/09/14) TOTAL KNEE REPLACEMENT (10/13/13) Sepsis Event Note (H) - Evaluation Possible source of Sepsis: positive: GI tract/intra-abdominal, Unknown ABX Reporting Has patient been on IV antibiotics over the past 48 hours?: Yes
[2020-02-01] MEDS: ANASTROZOLE 1 MG TABLET PO SCH (09:13)
[2020-02-01] MEDS: ethyl alcohoL 62% SWAB AMPULE NAS SCH ×2 (09:13→20:46)
[2020-02-01] MEDS: ASPIRIN EC 81 MG TABLET PO SCH (09:13)
[2020-02-01] MEDS: polyethylene glycoL 3350 17 GM PACKET PO SCH (09:14)
[2020-02-01] MEDS: ENOXAPARIN 40 MG/0.4 ML SYRINGE SUBQ SCH (09:14)
[2020-02-01 15:47] LABS: VANCOMYCIN,TROUGH 13.8 ug/mL (10.0-20.0)
[2020-02-01] MEDS: VANCOMYCIN INJ 2 GM in SODIUM CHLORIDE 0.9% 500 ML IV SCH (16:48)
[2020-02-01] MEDS: ATORVASTATIN 10 MG TABLET PO SCH (20:46)
[2020-02-01] MEDS: INSULIN GLARGINE 300 UNIT/3 ML PEN SUBQ SCH (20:50)
[2020-02-02] MEDS: CEFEPIME 2 GM in SODIUM CHLORIDE 0.9% MINIBAG 100 ML IV SCH ×3 (00:24→22:37)
[2020-02-02] MEDS: SODIUM CHLORIDE 0.9% 1,000 ML IV SCH ×2 (00:25→15:35)
[2020-02-02] MEDS: SODIUM CHLORIDE FLUSH 0.9% 10 ML SYRINGE IVP SCH ×3 (00:27→17:22)
[2020-02-02] MEDS: metroNIDAZOLE 500 MG/100 ML 500 MG/100 ML BAG IV SCH ×3 (05:03→22:37)
[2020-02-02 06:15] LABS: BASOPHILS % (AUTO) 1.2 %; EOSINOPHILS % (AUTO) 10.1 %; HGB - HEMOGLOBIN 11.5 g/dL (12.0-16.0); LYMPHOCYTES % (AUTO) 23.3 %; MEAN CORPUSCULAR HEMOGLOBIN 30.2 pg (27.0-31.0); MEAN CORPUSCULAR HGB CONC 33.2 g/dL (32.0-36.0); MEAN CORPUSCULAR VOLUME 90.8 fL (81.0-99.0); MEAN PLATELET VOLUME 9.9 fL (7.9-10.8); MONOCYTES % (AUTO) 11.2 %; NEUTROPHILS % (AUTO) 51.8 %; PLT - PLATELET COUNT 236 10^3/uL (130-450); RED BLOOD COUNT 3.81 10^6/uL (4.20-5.40); RED CELL DISTRIBUTION WIDTH 15.5 % (12.0-15.0); WHITE BLOOD COUNT 10.3 x10^3/uL (4.8-10.8)
[2020-02-02 06:20] LABS: ABNORMAL LYMPHS % (MANUAL) 0 %; BAND NEUTROPHILS % (MANUAL) 0 %
[2020-02-02] MEDS: PANTOPRAZOLE 40 MG VIAL IVP SCH (06:29)
[2020-02-02] MEDS: LEVOTHYROXINE 125 MCG TABLET PO SCH (06:31)
[2020-02-02 06:33] LABS: CREATININE 0.8 mg/dL (0.4-1.0)
[2020-02-02 06:34] LABS: ALBUMIN 2.4 g/dL (3.2-5.5); ALBUMIN/GLOBULIN RATIO 0.9 (1.0-2.2); BILIRUBIN,TOTAL 0.8 mg/dL (0.2-1.0); CALCIUM 8.9 mg/dL (8.5-10.3)
[2020-02-02 06:37] LABS: DIFFERENTIAL COMMENT MANUAL DIFFERENTIAL; EOSINOPHILS # (MANUAL) 0.4 10^3/uL (0-0.7); LYMPHOCYTES # (MANUAL) 2.9 10^3/uL (1.5-3.5); LYMPHOCYTES % (MANUAL) 28 %; MONOCYTES # (MANUAL) 0.5 10^3/uL (0.0-1.0); PLATELET ESTIMATE, MANUAL NORMAL (130-450,000) (NORMAL); RBC MORPHOLOGY (MULTIPLE) NORMAL APPEARANCE (NORMAL)
[2020-02-02] MEDS ORDERED: POTASSIUM CHLORIDE 20 MEQ TABLET PO ONE (08:23)
[2020-02-02] MEDS: ANASTROZOLE 1 MG TABLET PO SCH (08:55)
[2020-02-02] MEDS: ethyl alcohoL 62% SWAB AMPULE NAS SCH ×2 (08:55→22:37)
[2020-02-02] MEDS: ASPIRIN EC 81 MG TABLET PO SCH (08:55)
[2020-02-02] MEDS: INSULIN ASPART 300 UNIT/3 ML PEN SUBQ SCH ×4 (08:56→22:38)
[2020-02-02] MEDS: ENOXAPARIN 40 MG/0.4 ML SYRINGE SUBQ SCH (08:57)
[2020-02-02] MEDS: INSULIN GLARGINE 300 UNIT/3 ML PEN SUBQ SCH ×2 (08:57→22:39)
[2020-02-02] MEDS: NYSTATIN CREAM 15 GM TUBE TOP SCH ×2 (08:58→23:56)
[2020-02-02] MEDS: polyethylene glycoL 3350 17 GM PACKET PO SCH (08:58)
--- NOTE | 2020-02-02 11:51 | PROVIDER PROGRESS NOTE ---
Assessment/Plan - Problem List (1) Sepsis Assessment/Plan: 02/01, Improved, Patient has no fever, WBC become normal today, lactic acid is normal, Patient's tachycardia is resolved. We will continue intravenous antibiotics today and we will switch to oral antibiotics on tomorrow. Continue intravenous IV fluids (2) confused 1124, patient still has some confused today. CT of the head was Unremarkable in the admission. it appears this could be acute on chronic as her baseline. pt has acute infection at the hospital. Suspect patient has underline of dementia. The patient acknowledges this and expresses that she will need to move in with one of her children. consult with social work to reach out to patient's son who lives in [facility]. (3) Cellulitis of abdominal wall Assessment/Plan: Improved. I with the nurse to check the abdominal wall cellulitis, it great progress and almost resolved. We will change her antibiotics to oral on tomorrow (4) Diabetes mellitus Patient's hemoglobin A1c was 8.3. continue slide scale (5) Right sided weakness CT of the head was Unremarkable. pt has no complaint, and resolved.This is likely due to being on that side on the ground for possibly 3 days. PT/OT has evaluation and treatment for pt, pt was recommended to SNF (6) Rhabdomyolysis resolved (7) Acute kidney injury Resolved.Continue IV fluids (8)weakness continue PT/OT's evaluation and treatment for pt, recommended to SNF. consulted with community mental health social worker for disposition. - Current Meds Current Meds: Current Medications Generic Name Dose Route Start Last Admin Trade Name Freq PRN Reason Stop Dose Admin Acetaminophen 650 mg 01/30/20 20:17 02/01/20 02:31 Tylenol PO 650 mg Q4HR PRN Administration Pain 1 to 4 Alcohol 1 amp 01/31/20 21:00 02/02/20 08:55 Nozin LUCINDA 1 amp BID RAMAKRISHNA Administration Anastrozole 1 mg 01/31/20 09:00 02/02/20 08:55 Anastrozole PO 1 mg DAILY RAMAKRISHNA Administration Aspirin 81 mg 01/31/20 09:00 02/02/20 08:55 Ecotrin PO 81 mg DAILY RAMAKRISHNA Administration Atorvastatin Calcium 10 mg 01/31/20 21:00 02/01/20 20:46 Lipitor PO 10 mg QPM RAMAKRISHNA Administration Enoxaparin Sodium 40 mg 01/31/20 09:00 02/02/20 08:57 Lovenox SUBQ 40 mg DAILY RAMAKRISHNA Administration Metronidazole 500 mg in 100 mls @ 100 mls/hr 01/30/20 21:00 02/02/20 06:32 Flagyl 500 Mg/100 Ml IV Infused Q8H RAMAKRISHNA Infusion Cefepime HCl 2 gm/ Sodium 100 mls @ 200 mls/hr 01/31/20 03:00 02/02/20 09:25 Chloride IV Infused Q12H RAMAKRISHNA Infusion Vancomycin HCl 2 gm/ Sodium 500 mls @ 250 mls/hr 01/31/20 16:00 02/01/20 18:50 Chloride IV Infused Q24H RAMAKRISHNA Infusion Sodium Chloride 1,000 mls @ 75 mls/hr 02/01/20 07:45 02/02/20 00:25 Normal Saline 0.9% IV 75 mls/hr .[id number] RAMAKRISHNA Administration Insulin Aspart 3 - 11 unit 02/01/20 17:00 02/02/20 08:56 Novolog SUBQ 5 unit 0800,1200,1700,2100 RAMAKRISHNA Administration Protocol Insulin Glargine 26 unit 01/31/20 21:00 02/01/20 20:50 Lantus Solostar SUBQ 26 unit QPM RAMAKRISHNA Administration Insulin Glargine 5 unit 02/02/20 09:00 02/02/20 08:57 Lantus Solostar SUBQ 5 unit QDBREAKFAST RAMAKRISHNA Administration Levothyroxine Sodium 125 mcg 01/31/20 07:00 02/02/20 06:31 Synthroid PO 125 mcg QDAC RAMAKRISHNA Administration Nystatin 1 applic 02/01/20 23:00 02/02/20 08:58 Mycostatin Cream TOP 1 applic BID RAMAKRISHNA Administration Pantoprazole Sodium 40 mg 01/31/20 07:00 02/02/20 06:29 Protonix IVP 40 mg QDAC RAMAKRISHNA Administration Polyethylene Glycol 17 gm 02/01/20 09:00 02/02/20 08:58 Miralax PO 17 gm DAILY RAMAKRISHNA Administration Sodium Chloride 10 ml 01/30/20 20:17 01/31/20 06:43 Normal Saline Flush 0.9% IVP 10 ml PRN PRN Administration NEEDED PER PROVIDER ORDERS Sodium Chloride 10 ml 01/31/20 01:00 02/02/20 08:58 Normal Saline Flush 0.9% IVP Not Given 0100,0900,1700 RAMAKRISHNA - Lab Result Fish Bone Diagrams: 02/02/20 05:55 02/02/20 05:55 - Additional Planning My Orders: My Active Orders 02/02/20 09:00 Insulin Glargine [Lantus Solostar] 5 unit SUBQ QDBREAKFAST Subjective - Subjective Nursing Reports: No Complaints, Confused Objective Vital Signs: Vital Signs - 24 hr 02/01/20 02/01/20 02/01/20 14:30 15:06 16:11 Temperature 36.6 C Heart Rate [ 67 Brachial] Heart Rate [ 74 73 Supine] Respiratory 18 Rate Blood Pressure 169/83 H 169/83 H [Activity] Blood Pressure 152/59 H [Right Brachial artery] Blood Pressure [Right Radial artery] Blood Pressure 141/73 H 141/73 H [Sitting] Blood Pressure 169/83 H [Standing] Blood Pressure 161/58 H 161/58 H [Supine] O2 Saturation 98 02/01/20 02/02/20 02/02/20 21:00 00:20 03:26 Temperature 36.5 C 36.7 C 36.6 C Heart Rate [ 64 69 66 Brachial] Heart Rate [ Supine] Respiratory 18 18 18 Rate Blood Pressure [Activity] Blood Pressure 146/51 H 160/48 H [Right Brachial artery] Blood Pressure 146/59 H [Right Radial artery] Blood Pressure [Sitting] Blood Pressure [Standing] Blood Pressure [Supine] O2 Saturation 100 96 95 02/02/20 02/02/20 07:25 11:26 Temperature 36.7 C 36.6 C Heart Rate [ 67 75 Brachial] Heart Rate [ Supine] Respiratory 18 18 Rate Blood Pressure [Activity] Blood Pressure 149/50 H 147/56 H [Right Brachial artery] Blood Pressure [Right Radial artery] Blood Pressure [Sitting] Blood Pressure [Standing] Blood Pressure [Supine] O2 Saturation 96 95 Oxygen O2 Source [With Activity] Room air O2 Source Room air I&O (Last 24 Hrs): Intake and Output Totals x24h 01/31/20 02/01/20 02/02/20 23:59 23:59 23:59 Intake Total 4638.75 5608.333 1343.25 Output Total 800 1350 1000 Balance 3838.75 4258.333 343.25 General: Alert, No acute distress HEENT: Atraumatic Neck: Supple Lymphatic: no adenopathy Neuro: Alert, Non Focal Cardiovascular: Regular rate, Normal S1, Normal S2 Respiratory: Chest non-tender, No respiratory distress, Breath sounds nml Abdomen: Normal bowel sounds, Soft Extremities: Normal pulses - Results Results: Laboratory Results WBC 10.3 x10^3/uL (4.8-10.8) 02/02/20 05:55 RBC 3.81 10^6/uL (4.20-5.40) L 02/02/20 05:55 Hgb 11.5 g/dL (12.0-16.0) L 02/02/20 05:55 Hct 34.6 % (37.0-47.0) L 02/02/20 05:55 MCV 90.8 fL (81.0-99.0) 02/02/20 05:55 MCH 30.2 pg (27.0-31.0) 02/02/20 05:55 MCHC 33.2 g/dL (32.0-36.0) 02/02/20 05:55 RDW 15.5 % (12.0-15.0) H 02/02/20 05:55 Plt Count 236 10^3/uL (130-450) 02/02/20 05:55 MPV 9.9 fL (7.9-10.8) 02/02/20 05:55 Neut # (Auto) Not Reportable 02/02/20 05:55 Lymph # (Auto) Not Reportable 02/02/20 05:55 Ford # (Auto) Not Reportable 02/02/20 05:55 Eos # (Auto) Not Reportable 02/02/20 05:55 Baso # (Auto) Not Reportable 02/02/20 05:55 Absolute Nucleated RBC Not Reportable 02/02/20 05:55 Total Counted 100 02/02/20 05:55 Band Neuts % (Manual) 0 % (0-10) 02/02/20 05:55 Reactive Lymphs % (Man) 1 % 01/30/20 13:45 Abnorm Lymph % (Manual) 0 % 02/02/20 05:55 Nucleated RBC % Not Reportable 02/02/20 05:55 Neutrophils # (Manual) 6.5 10^3/uL (1.5-6.6) 02/02/20 05:55 Lymphocytes # (Manual) 2.9 10^3/uL (1.5-3.5) 02/02/20 05:55 Monocytes # (Manual) 0.5 10^3/uL (0.0-1.0) 02/02/20 05:55 Eosinophils # (Manual) 0.4 10^3/uL (0-0.7) 02/02/20 05:55 Basophils # (Manual) 0.0 10^3/uL (0-0.1) 02/02/20 05:55 Differential Comment MANUAL DIFFERENTIAL 02/02/20 05:55 WBC Morphology NORMAL APPEARANCE (NORMAL) 01/31/20 04:05 Platelet Estimate NORMAL (130-450,000) (NORMAL) 02/02/20 05:55 Platelet Morphology NORMAL APPEARANCE (NORMAL) 01/31/20 04:05 RBC Morph Micro Appear NORMAL APPEARANCE (NORMAL) 02/02/20 05:55 Sodium 142 mmol/L (135-145) 02/02/20 05:55 Potassium 3.4 mmol/L (3.5-5.0) L 02/02/20 05:55 Chloride 114 mmol/L (101-111) H 02/02/20 05:55 Carbon Dioxide 20 mmol/L (21-32) L 02/02/20 05:55 Anion Gap 8.0 (6-13) 02/02/20 05:55 BUN 16 mg/dL (6-20) 02/02/20 05:55 Creatinine 0.8 mg/dL (0.4-1.0) 02/02/20 05:55 Estimated GFR (MDRD) 70 (>89) L 02/02/20 05:55 Glucose 203 mg/dL (70-100) H 02/02/20 05:55 POC Whole Bld Glucose 274 mg/dL (70 - 100) H 02/02/20 11:16 Estimat Average Glucose 192 mg/dL (70-100) H 01/30/20 13:45 Hemoglobin A1c % 8.3 % (4.27-6.07) H 01/30/20 13:45 Lactic Acid 1.8 mmol/L (0.5-2.2) 01/31/20 18:35 Calcium 8.9 mg/dL (8.5-10.3) 02/02/20 05:55 Phosphorus 1.8 mg/dL (2.5-4.6) L 01/31/20 04:05 Magnesium 2.4 mg/dL (1.7-2.8) 02/01/20 05:49 Total Bilirubin 0.8 mg/dL (0.2-1.0) 02/02/20 05:55 AST 25 IU/L (10-42) 02/02/20 05:55 ALT 40 IU/L (10-60) 02/02/20 05:55 Alkaline Phosphatase 52 IU/L (42-121) 02/02/20 05:55 Total Creatine Kinase 131 IU/L (22-269) 02/02/20 05:55 Troponin I High Sens 35.0 ng/L (2.3-14.8) H* 01/31/20 02:33 Total Protein 5.0 g/dL (6.7-8.2) L 02/02/20 05:55 Albumin 2.4 g/dL (3.2-5.5) L 02/02/20 05:55 Globulin 2.6 g/dL (2.1-4.2) 02/02/20 05:55 Albumin/Globulin Ratio 0.9 (1.0-2.2) L 02/02/20 05:55 TSH 0.99 uIU/mL (0.34-5.60) 01/30/20 13:45 Urine Color YELLOW 01/30/20 13:15 Urine Clarity CLEAR (CLEAR) 01/30/20 13:15 Urine pH 5.5 PH (5.0-7.5) 01/30/20 13:15 Ur Specific Oscar >=1.030 (1.002-1.030) H 01/30/20 13:15 Urine Protein 100 mg/dL (NEGATIVE) H 01/30/20 13:15 Urine Glucose (UA) >=1000 mg/dL (NEGATIVE) H 01/30/20 13:15 Urine Ketones 40 mg/dL (NEGATIVE) H 01/30/20 13:15 Urine Occult Blood MODERATE (NEGATIVE) H 01/30/20 13:15 Urine Nitrite NEGATIVE (NEGATIVE) 01/30/20 13:15 Urine Bilirubin NEGATIVE (NEGATIVE) 01/30/20 13:15 Urine Urobilinogen 0.2 (NORMAL) E.U./dL (NORMAL) 01/30/20 13:15 Ur Leukocyte Esterase NEGATIVE (NEGATIVE) 01/30/20 13:15 Urine RBC 11-25 /HPF (0-5) H 01/30/20 13:15 Urine WBC 4-5 /HPF (0-5) 01/30/20 13:15 Ur Squamous Epith Cells RARE Squamous (<= Few) 01/30/20 13:15 Urine Bacteria Few /HPF (None Seen) 01/30/20 13:15 Urine Culture Comments NOT INDICATED 01/30/20 13:15 Nasal Adenovirus (PCR) NOT DETECTED 01/30/20 13:45 Nasal B. parapertussis DNA (PCR) NOT DETECTED 01/30/20 13:45 Nasal Coronavir 229E PCR NOT DETECTED 01/30/20 13:45 Nasal Coronavir HKU1 PCR NOT DETECTED 01/30/20 13:45 Nasal Coronavir NL63 PCR NOT DETECTED 01/30/20 13:45 Nasal Coronavir OC43 PCR NOT DETECTED 01/30/20 13:45 Nasal Enterovir/Rhinovir PCR NOT DETECTED 01/30/20 13:45 Nasal Influenza B PCR NOT DETECTED 01/30/20 13:45 Nasal Influenza A PCR NOT DETECTED 01/30/20 13:45 Nasal Parainfluen 1 PCR NOT DETECTED 01/30/20 13:45 Nasal Parainfluen 2 PCR NOT DETECTED 01/30/20 13:45 Nasal Parainfluen 3 PCR NOT DETECTED 01/30/20 13:45 Nasal Parainfluen 4 PCR NOT DETECTED 01/30/20 13:45 Nasal RSV (PCR) NOT DETECTED 01/30/20 13:45 Nasal Screen MRSA (PCR) POSITIVE (NEGATIVE) A* 01/31/20 08:20 Nasal B.pertussis DNA PCR NOT DETECTED 01/30/20 13:45 Nasal C.pneumoniae (PCR) NOT DETECTED 01/30/20 13:45 Lucinda Human Metapneumo PCR NOT DETECTED 01/30/20 13:45 Nasal M.pneumoniae (PCR) NOT DETECTED 01/30/20 13:45 Nasal SARS-CoV-2 (PCR) NOT DETECTED 01/30/20 13:45 Last Dose Date 01/31/20 02/01/20 15:22 Last Dose Time 1650 02/01/20 15:22 Vancomycin Trough 13.8 ug/mL (10.0-20.0) 02/01/20 15:22 - Procedures Procedures: Procedures ENDOSC POLYPECTOMY OF LG INTEST (09/26/12) EXCISE AXILLARY NODE (06/29/14) EXCISION OF NIPPLE (08/09/14) EXPLOR TEND SHEATH-HAND (01/21/14) LOCAL EXCIS BREAST LES (06/29/14) OTHER LOCAL DESTRUC SKIN (08/09/14) TOTAL KNEE REPLACEMENT (10/13/13) Sepsis Event Note (H) - Evaluation Current Stage of Sepsis: Sepsis Possible source of Sepsis: positive: GI tract/intra-abdominal - Sepsis Criteria Sepsis Criteria: WBC count greater than 12,000 or less than 4000, Renal: urine output less than 0.5ml/kg/hr for 2 hours or creatinine gr, Metabolic: lactate > 2 mmol/L ABX Reporting Has patient been on IV antibiotics over the past 48 hours?: Yes Current Medications - Current Medications Current Medications: Active Medications Acetaminophen (Tylenol) 650 mg PO Q4HR PRN PRN Reason: Pain 1 to 4 Last Admin: 02/01/20 02:31 Dose: 650 mg Documented by: Alcohol (Nozin) 1 amp LUCINDA BID [facility] Last Admin: 02/02/20 08:55 Dose: 1 amp Documented by: Anastrozole (Anastrozole) 1 mg PO DAILY [facility] Last Admin: 02/02/20 08:55 Dose: 1 mg Documented by: Aspirin (Ecotrin) 81 mg PO DAILY [facility] Last Admin: 02/02/20 08:55 Dose: 81 mg Documented by: Atorvastatin Calcium (Lipitor) 10 mg PO QPM [facility] Last Admin: 02/01/20 20:46 Dose: 10 mg Documented by: Enoxaparin Sodium (Lovenox) 40 mg SUBQ DAILY [facility] Last Admin: 02/02/20 08:57 Dose: 40 mg Documented by: Metronidazole (Flagyl 500 Mg/100 Ml) 500 mg in 100 mls @ 100 mls/hr IV Q8H [facility] Last Infusion: 02/02/20 06:32 Dose: Infused Documented by: Cefepime HCl 2 gm/ Sodium (Chloride) 100 mls @ 200 mls/hr IV Q12H [facility] Last Infusion: 02/02/20 09:25 Dose: Infused Documented by: Vancomycin HCl 2 gm/ Sodium (Chloride) 500 mls @ 250 mls/hr IV Q24H [facility] Last Infusion: 02/01/20 18:50 Dose: Infused Documented by: Sodium Chloride (Normal Saline 0.9%) 1,000 mls @ 75 mls/hr IV .[id number] [facility] Last Admin: 02/02/20 00:25 Dose: 75 mls/hr Documented by: Insulin Aspart (Novolog) 3 - 11 unit SUBQ 0800,1200,1700,2100 [facility]; Protocol Last Admin: 02/02/20 11:46 Dose: 7 unit Documented by: Insulin Glargine (Lantus Solostar) 26 unit SUBQ QPM [facility] Last Admin: 02/01/20 20:50 Dose: 26 unit Documented by: Insulin Glargine (Lantus Solostar) 5 unit SUBQ QDBREAKFAST [facility] Last Admin: 02/02/20 08:57 Dose: 5 unit Documented by: Levothyroxine Sodium (Synthroid) 125 mcg PO QDAC [facility] Last Admin: 02/02/20 06:31 Dose: 125 mcg Documented by: Nystatin (Mycostatin Cream) 1 applic TOP BID [facility] Last Admin: 02/02/20 08:58 Dose: 1 applic Documented by: Ondansetron HCl (Zofran Inj) 4 mg IVP Q6HR PRN PRN Reason: Nausea / Vomiting Pantoprazole Sodium (Protonix) 40 mg IVP QDAC [facility] Last Admin: 02/02/20 06:29 Dose: 40 mg Documented by: Polyethylene Glycol (Miralax) 17 gm PO DAILY [facility] Last Admin: 02/02/20 08:58 Dose: 17 gm Documented by: Sodium Chloride (Normal Saline Flush 0.9%) 10 ml IVP PRN PRN PRN Reason: NEEDED PER PROVIDER ORDERS Last Admin: 01/31/20 06:43 Dose: 10 ml Documented by: Sodium Chloride (Normal Saline Flush 0.9%) 10 ml IVP 0100,0900,1700 [facility] Last Admin: 02/02/20 08:58 Dose: Not Given Documented by: Levothyroxine Sodium [Levothroid] 125 mcg PO DAILY 09/25/12 Lovastatin [Mevacor] 40 mg PO DAILY 09/25/12 allopurinoL [Allopurinol] 100 mg PO DAILY 09/25/12 Furosemide [Lasix] 80 mg PO QAM 11/28/12 Insulin Aspart [Novolog] 25 unit SQ TID 11/28/12 Metformin HCl 1,000 mg PO BID 11/28/12 Potassium Chloride [Klor-Con 10] 40 meq PO DAILY 11/28/12 Cholecalciferol (Vitamin D3) [Vitamin D3] 5,000 unit PO DAILY 07/16/13 Alprazolam 1 mg PO QPM PRN 10/08/13 Anastrozole 1 mg PO DAILY 03/25/15 Insulin Glargine,Hum.rec.anlog [Basaglar Kwikpen U-100] 26 unit SUBQ DAILY 05/28/18 Bupropion HCl [Wellbutrin Xl] 300 mg PO DAILY 01/31/20
[2020-02-02] MEDS: VANCOMYCIN INJ 2 GM in SODIUM CHLORIDE 0.9% 500 ML IV SCH (15:32)
[2020-02-02] MEDS ORDERED: ALPRAZOLAM 1 MG PO PRN (21:24)
[2020-02-02] MEDS: ATORVASTATIN 10 MG TABLET PO SCH (22:36)
[2020-02-02] MEDS: ALPRAZolam 0.25 MG TABLET PO SCH (22:36)
[2020-02-03] MEDS: SODIUM CHLORIDE FLUSH 0.9% 10 ML SYRINGE IVP SCH ×4 (06:37→23:24)
[2020-02-03] MEDS: SODIUM CHLORIDE 0.9% 1,000 ML IV SCH ×3 (06:51→23:23)
[2020-02-03] MEDS: LEVOTHYROXINE 125 MCG TABLET PO SCH (06:51)
[2020-02-03] MEDS: metroNIDAZOLE 500 MG/100 ML 500 MG/100 ML BAG IV SCH (06:51)
[2020-02-03 07:09] LABS: BASOPHILS # (AUTO) 0.1 10^3/uL (0.0-0.1); BASOPHILS % (AUTO) 1.4 %; EOSINOPHILS # (AUTO) 1.3 10^3/uL (0.0-0.7); EOSINOPHILS % (AUTO) 12.4 %; HGB - HEMOGLOBIN 11.9 g/dL (12.0-16.0); LYMPHOCYTES # (AUTO) 2.3 10^3/uL (1.5-3.5); LYMPHOCYTES % (AUTO) 22.6 %; MEAN CORPUSCULAR HEMOGLOBIN 29.8 pg (27.0-31.0); MEAN CORPUSCULAR HGB CONC 33.1 g/dL (32.0-36.0); MEAN PLATELET VOLUME 10.4 fL (7.9-10.8); MONOCYTES # (AUTO) 1.2 10^3/uL (0.0-1.0); MONOCYTES % (AUTO) 11.6 %; NEUTROPHILS % (AUTO) 48.6 %; PLT - PLATELET COUNT 208 10^3/uL (130-450); RED CELL DISTRIBUTION WIDTH 15.5 % (12.0-15.0); WHITE BLOOD COUNT 10.2 x10^3/uL (4.8-10.8)
[2020-02-03 07:18] LABS: ALBUMIN 2.3 g/dL (3.2-5.5); ALBUMIN/GLOBULIN RATIO 0.9 (1.0-2.2); BILIRUBIN,TOTAL 0.7 mg/dL (0.2-1.0); CALCIUM 8.9 mg/dL (8.5-10.3); CREATININE 0.8 mg/dL (0.4-1.0); TOTAL PROTEIN 4.8 g/dL (6.7-8.2)
[2020-02-03 08:03] LABS: PLATELET ESTIMATE, MANUAL NORMAL (130-450,000) (NORMAL); PLATELET MORPHOLOGY NORMAL APPEARANCE (NORMAL); RBC MORPHOLOGY (MULTIPLE) NORMAL APPEARANCE (NORMAL)
[2020-02-03] MEDS: CEFEPIME 2 GM in SODIUM CHLORIDE 0.9% MINIBAG 100 ML IV SCH (08:48)
[2020-02-03] MEDS: allopurinoL 100 MG TABLET PO SCH (08:49)
[2020-02-03] MEDS: ASPIRIN EC 81 MG TABLET PO SCH (08:49)
[2020-02-03] MEDS: ethyl alcohoL 62% SWAB AMPULE NAS SCH ×2 (08:50→21:41)
[2020-02-03] MEDS: ENOXAPARIN 40 MG/0.4 ML SYRINGE SUBQ SCH (08:50)
[2020-02-03] MEDS: buPROPion XL 150 MG TABLET PO SCH (08:50)
[2020-02-03] MEDS: ANASTROZOLE 1 MG TABLET PO SCH (08:50)
[2020-02-03] MEDS: polyethylene glycoL 3350 17 GM PACKET PO SCH (08:50)
[2020-02-03] MEDS: NYSTATIN CREAM 15 GM TUBE TOP SCH ×2 (08:51→21:41)
[2020-02-03] MEDS: ALPRAZolam 0.25 MG TABLET PO SCH ×2 (08:51→21:39)
[2020-02-03] MEDS: INSULIN ASPART 300 UNIT/3 ML PEN SUBQ SCH ×5 (08:52→21:39)
[2020-02-03] MEDS: INSULIN GLARGINE 300 UNIT/3 ML PEN SUBQ SCH ×2 (08:53→21:40)
[2020-02-03] MEDS ORDERED: CHOLECALCIFEROL 25 MCG TABLET PO SCH (09:00)
[2020-02-03] MEDS: CHOLECALCIFEROL 25 MCG TABLET PO SCH (09:18)
[2020-02-03 13:59] LABS: C. PNEUMONIAE- RESP PCR PANEL NOT DETECTED
[2020-02-03] MEDS: DOXYCYCLINE 100 MG TABLET PO SCH ×2 (14:38→21:39)
--- NOTE | 2020-02-03 15:31 | PROVIDER PROGRESS NOTE ---
Assessment/Plan - Problem List (1) Sepsis Assessment/Plan: 02/02, Patient WBC is normal, blood cultures negative, patient has no fever, Cellulitis of abdominal wall is almost resolved. There is almost no erythema or tenderness. Consult with pharmacy, switch patient intravenous antibiotics to oral antibiotics Doxycycline. pt nasal screen is positive for MRSA. Patient is pending for replacement, continue social work consult 02/01, Improved, Patient has no fever, WBC become normal today, lactic acid is normal, Patient's tachycardia is resolved. We will continue intravenous antibiotics today and we will switch to oral antibiotics on tomorrow. Continue intravenous IV fluids (2) confused 02/02, Resolved as patient baseline. 1124, patient still has some confused today. CT of the head was Unremarkable in the admission. it appears this could be acute on chronic as her baseline. pt has acute infection at the hospital. Suspect patient has underline of dementia. The patient acknowledges this and expresses that she will need to move in with one of her children. consult with social work to reach out to patient's son who lives in [facility]. (3) Cellulitis of abdominal wall Assessment/Plan: 02/02 Cellulitis of abdominal wall is almost resolved. There is almost no erythema or tenderness. Consult with pharmacy, switch patient intravenous antibiotics to oral antibiotics Doxycycline. pt nasal screen is positive for MRSA. Improved. I with the nurse to check the abdominal wall cellulitis, it great progress and almost resolved. We will change her antibiotics to oral on tomorrow (4) Diabetes mellitus 02/02 add tid with M scheduled 5 unit of insulin, slight reduce slide scan to moderate scan Patient's hemoglobin A1c was 8.3. continue slide scale (5) Right sided weakness CT of the head was Unremarkable. pt has no complaint, and resolved.This is likely due to being on that side on the ground for possibly 3 days. PT/OT has evaluation and treatment for pt, pt was recommended to SNF (6) Rhabdomyolysis resolved (7) Acute kidney injury Resolved.Continue IV fluids (8)weakness 02/02 Continue PT/OT, continue social work consult, patient is pending for replacement of SNF continue PT/OT's evaluation and treatment for pt, recommended to SNF. consulted with home health care social worker for disposition. - Current Meds Current Meds: Current Medications Generic Name Dose Route Start Last Admin Trade Name Freq PRN Reason Stop Dose Admin Acetaminophen 650 mg 01/30/20 20:17 02/01/20 02:31 Tylenol PO 650 mg Q4HR PRN Administration Pain 1 to 4 Alcohol 1 amp 01/31/20 21:00 02/03/20 08:50 Nozin LUCINDA 1 amp BID RAMAKRISHNA Administration Allopurinol 100 mg 02/03/20 09:00 02/03/20 08:49 Zyloprim PO 100 mg DAILY RAMAKRISHNA Administration Alprazolam 1 mg 02/02/20 21:30 02/03/20 08:51 Xanax PO Not Given BID RAMAKRISHNA Anastrozole 1 mg 02/03/20 09:00 02/03/20 08:50 Anastrozole PO 1 mg DAILY RAMAKRISHNA Administration Aspirin 81 mg 01/31/20 09:00 02/03/20 08:49 Ecotrin PO 81 mg DAILY RAMAKRISHNA Administration Atorvastatin Calcium 10 mg 01/31/20 21:00 02/02/20 22:36 Lipitor PO 10 mg QPM RAMAKRISHNA Administration Bupropion HCl 300 mg 02/03/20 09:00 02/03/20 08:50 Wellbutrin Xl PO 300 mg DAILY RAMAKRISHNA Administration Cholecalciferol 125 mcg 02/03/20 09:00 02/03/20 09:18 Vitamin D3 PO 125 mcg DAILY RAMAKRISHNA Administration Doxycycline Hyclate 100 mg 02/03/20 15:00 02/03/20 14:38 Vibramycin PO 100 mg BID RAMAKRISHNA Administration Enoxaparin Sodium 40 mg 01/31/20 09:00 02/03/20 08:50 Lovenox SUBQ 40 mg DAILY RAMAKRISHNA Administration Sodium Chloride 1,000 mls @ 75 mls/hr 02/01/20 07:45 02/03/20 12:49 Normal Saline 0.9% IV 0 mls/hr .[id number] RAMAKRISHNA Infusion Insulin Glargine 26 unit 01/31/20 21:00 02/02/20 22:39 Lantus Solostar SUBQ 26 unit QPM RAMAKRISHNA Administration Insulin Glargine 5 unit 02/02/20 09:00 02/03/20 08:53 Lantus Solostar SUBQ 5 unit QDBREAKFAST RAMAKRISHNA Administration Levothyroxine Sodium 125 mcg 02/03/20 07:00 02/03/20 06:51 Synthroid PO 125 mcg QDAC RAMAKRISHNA Administration Nystatin 1 applic 02/01/20 23:00 02/03/20 08:51 Mycostatin Cream TOP 1 applic BID RAMAKRISHNA Administration Polyethylene Glycol 17 gm 02/01/20 09:00 02/03/20 08:50 Miralax PO 17 gm DAILY RAMAKRISHNA Administration Sodium Chloride 10 ml 01/30/20 20:17 01/31/20 06:43 Normal Saline Flush 0.9% IVP 10 ml PRN PRN Administration NEEDED PER PROVIDER ORDERS Sodium Chloride 10 ml 01/31/20 01:00 02/03/20 08:50 Normal Saline Flush 0.9% IVP Not Given 0100,0900,1700 RAMAKRISHNA - Lab Result Fish Bone Diagrams: 02/03/20 06:58 02/03/20 06:58 - Additional Planning My Orders: My Active Orders 02/03/20 15:00 Doxycycline [Vibramycin] 100 mg PO BID 02/03/20 17:00 Insulin Aspart [NovoLOG] 1 - 9 unit SUBQ 0800,1200,1700,2100 Insulin Aspart [NovoLOG] 5 unit SUBQ TIDWM Subjective - Subjective Patient Reports: Feeling Better Nursing Reports: No Complaints Objective Vital Signs: Vital Signs - 24 hr 02/02/20 02/02/20 02/02/20 16:04 21:00 23:15 Temperature 36.7 C 36.5 C 36.6 C Heart Rate [ 72 70 66 Brachial] Respiratory 18 18 18 Rate Blood Pressure 176/64 H [Left Radial artery] Blood Pressure 156/71 H [Right Brachial artery] Blood Pressure 169/80 H [Right Radial artery] O2 Saturation 99 100 99 02/03/20 02/03/20 02/03/20 04:52 07:41 13:11 Temperature 36.5 C 36.4 C L 36.5 C Heart Rate [ 64 76 Brachial] Respiratory 18 20 16 Rate Blood Pressure [Left Radial artery] Blood Pressure 154/64 H 145/85 H [Right Brachial artery] Blood Pressure 163/82 H [Right Radial artery] O2 Saturation 99 97 99 Oxygen O2 Source [With Activity] Room air O2 Source Room air I&O (Last 24 Hrs): Intake and Output Totals x24h 02/01/20 02/02/20 02/03/20 23:59 23:59 23:59 Intake Total 5608.333 4603.25 2622.5 Output Total 1350 1800 1350 Balance 4258.333 2803.25 1272.5 General: Alert, Cooperative, No acute distress HEENT: Atraumatic Neck: Supple Lymphatic: no adenopathy Neuro: Alert, Non Focal Cardiovascular: Regular rate, Normal S1, Normal S2 Respiratory: Chest non-tender, No respiratory distress Abdomen: Normal bowel sounds, Soft, No tenderness Extremities: Normal pulses - Results Results: Laboratory Results WBC 10.2 x10^3/uL (4.8-10.8) 02/03/20 06:58 RBC 4.00 10^6/uL (4.20-5.40) L 02/03/20 06:58 Hgb 11.9 g/dL (12.0-16.0) L 02/03/20 06:58 Hct 36.0 % (37.0-47.0) L 02/03/20 06:58 MCV 90.0 fL (81.0-99.0) 02/03/20 06:58 MCH 29.8 pg (27.0-31.0) 02/03/20 06:58 MCHC 33.1 g/dL (32.0-36.0) 02/03/20 06:58 RDW 15.5 % (12.0-15.0) H 02/03/20 06:58 Plt Count 208 10^3/uL (130-450) 02/03/20 06:58 MPV 10.4 fL (7.9-10.8) 02/03/20 06:58 Neut # (Auto) 5.0 10^3/uL (1.5-6.6) 02/03/20 06:58 Lymph # (Auto) 2.3 10^3/uL (1.5-3.5) 02/03/20 06:58 [place] # (Auto) 1.2 10^3/uL (0.0-1.0) H 02/03/20 06:58 Eos # (Auto) 1.3 10^3/uL (0.0-0.7) H 02/03/20 06:58 Baso # (Auto) 0.1 10^3/uL (0.0-0.1) 02/03/20 06:58 Absolute Nucleated RBC 0.00 x10^3/uL 02/03/20 06:58 Total Counted 100 02/02/20 05:55 Band Neuts % (Manual) 0 % (0-10) 02/02/20 05:55 Reactive Lymphs % (Man) 1 % 01/30/20 13:45 Abnorm Lymph % (Manual) 0 % 02/02/20 05:55 Nucleated RBC % 0.0 /100WBC 02/03/20 06:58 Neutrophils # (Manual) 6.5 10^3/uL (1.5-6.6) 02/02/20 05:55 Lymphocytes # (Manual) 2.9 10^3/uL (1.5-3.5) 02/02/20 05:55 Monocytes # (Manual) 0.5 10^3/uL (0.0-1.0) 02/02/20 05:55 Eosinophils # (Manual) 0.4 10^3/uL (0-0.7) 02/02/20 05:55 Basophils # (Manual) 0.0 10^3/uL (0-0.1) 02/02/20 05:55 Differential Comment MANUAL DIFFERENTIAL 02/02/20 05:55 Manual Slide Review Indicated 02/03/20 06:58 WBC Morphology (NORMAL) 02/03/20 06:58 Platelet Estimate NORMAL (130-450,000) (NORMAL) 02/03/20 06:58 Platelet Morphology NORMAL APPEARANCE (NORMAL) 02/03/20 06:58 RBC Morph Micro Appear NORMAL APPEARANCE (NORMAL) 02/03/20 06:58 Sodium 141 mmol/L (135-145) 02/03/20 06:58 Potassium 3.7 mmol/L (3.5-5.0) 02/03/20 06:58 Chloride 115 mmol/L (101-111) H 02/03/20 06:58 Carbon Dioxide 19 mmol/L (21-32) L 02/03/20 06:58 Anion Gap 7.0 (6-13) 02/03/20 06:58 BUN 12 mg/dL (6-20) 02/03/20 06:58 Creatinine 0.8 mg/dL (0.4-1.0) 02/03/20 06:58 Estimated GFR (MDRD) 70 (>89) L 02/03/20 06:58 Glucose 203 mg/dL (70-100) H 02/03/20 06:58 POC Whole Bld Glucose 266 mg/dL (70 - 100) H 02/03/20 11:21 Estimat Average Glucose 192 mg/dL (70-100) H 01/30/20 13:45 Hemoglobin A1c % 8.3 % (4.27-6.07) H 01/30/20 13:45 Lactic Acid 1.8 mmol/L (0.5-2.2) 01/31/20 18:35 Calcium 8.9 mg/dL (8.5-10.3) 02/03/20 06:58 Phosphorus 1.8 mg/dL (2.5-4.6) L 01/31/20 04:05 Magnesium 2.4 mg/dL (1.7-2.8) 02/01/20 05:49 Total Bilirubin 0.7 mg/dL (0.2-1.0) 02/03/20 06:58 AST 36 IU/L (10-42) 02/03/20 06:58 ALT 39 IU/L (10-60) 02/03/20 06:58 Alkaline Phosphatase 53 IU/L (42-121) 02/03/20 06:58 Total Creatine Kinase 73 IU/L (22-269) 02/03/20 06:58 Troponin I High Sens 35.0 ng/L (2.3-14.8) H* 01/31/20 02:33 Total Protein 4.8 g/dL (6.7-8.2) L 02/03/20 06:58 Albumin 2.3 g/dL (3.2-5.5) L 02/03/20 06:58 Globulin 2.5 g/dL (2.1-4.2) 02/03/20 06:58 Albumin/Globulin Ratio 0.9 (1.0-2.2) L 02/03/20 06:58 TSH 0.99 uIU/mL (0.34-5.60) 01/30/20 13:45 Urine Color YELLOW 01/30/20 13:15 Urine Clarity CLEAR (CLEAR) 01/30/20 13:15 Urine pH 5.5 PH (5.0-7.5) 01/30/20 13:15 Ur Specific Bascom >=1.030 (1.002-1.030) H 01/30/20 13:15 Urine Protein 100 mg/dL (NEGATIVE) H 01/30/20 13:15 Urine Glucose (UA) >=1000 mg/dL (NEGATIVE) H 01/30/20 13:15 Urine Ketones 40 mg/dL (NEGATIVE) H 01/30/20 13:15 Urine Occult Blood MODERATE (NEGATIVE) H 01/30/20 13:15 Urine Nitrite NEGATIVE (NEGATIVE) 01/30/20 13:15 Urine Bilirubin NEGATIVE (NEGATIVE) 01/30/20 13:15 Urine Urobilinogen 0.2 (NORMAL) E.U./dL (NORMAL) 01/30/20 13:15 Ur Leukocyte Esterase NEGATIVE (NEGATIVE) 01/30/20 13:15 Urine RBC 11-25 /HPF (0-5) H 01/30/20 13:15 Urine WBC 4-5 /HPF (0-5) 01/30/20 13:15 Ur Squamous Epith Cells RARE Squamous (<= Few) 01/30/20 13:15 Urine Bacteria Few /HPF (None Seen) 01/30/20 13:15 Urine Culture Comments NOT INDICATED 01/30/20 13:15 Nasal Adenovirus (PCR) NOT DETECTED 02/03/20 12:45 Nasal B. parapertussis DNA (PCR) NOT DETECTED 02/03/20 12:45 Nasal Coronavir 229E PCR NOT DETECTED 02/03/20 12:45 Nasal Coronavir HKU1 PCR NOT DETECTED 02/03/20 12:45 Nasal Coronavir NL63 PCR NOT DETECTED 02/03/20 12:45 Nasal Coronavir OC43 PCR NOT DETECTED 02/03/20 12:45 Nasal Enterovir/Rhinovir PCR NOT DETECTED 02/03/20 12:45 Nasal Influenza B PCR NOT DETECTED 02/03/20 12:45 Nasal Influenza A PCR NOT DETECTED 02/03/20 12:45 Nasal Parainfluen 1 PCR NOT DETECTED 02/03/20 12:45 Nasal Parainfluen 2 PCR NOT DETECTED 02/03/20 12:45 Nasal Parainfluen 3 PCR NOT DETECTED 02/03/20 12:45 Nasal Parainfluen 4 PCR NOT DETECTED 02/03/20 12:45 Nasal RSV (PCR) NOT DETECTED 02/03/20 12:45 Nasal Screen MRSA (PCR) POSITIVE (NEGATIVE) A* 01/31/20 08:20 Nasal B.pertussis DNA PCR NOT DETECTED 02/03/20 12:45 Nasal C.pneumoniae (PCR) NOT DETECTED 02/03/20 12:45 Lucinda Human Metapneumo PCR NOT DETECTED 02/03/20 12:45 Nasal M.pneumoniae (PCR) NOT DETECTED 02/03/20 12:45 Nasal SARS-CoV-2 (PCR) NOT DETECTED 02/03/20 12:45 Last Dose Date 01/31/20 02/01/20 15:22 Last Dose Time 1650 02/01/20 15:22 Vancomycin Trough 13.8 ug/mL (10.0-20.0) 02/01/20 15:22 - Procedures Procedures: Procedures ENDOSC POLYPECTOMY OF LG INTEST (09/26/12) EXCISE AXILLARY NODE (06/29/14) EXCISION OF NIPPLE (08/09/14) EXPLOR TEND SHEATH-HAND (01/21/14) LOCAL EXCIS BREAST LES (06/29/14) OTHER LOCAL DESTRUC SKIN (08/09/14) TOTAL KNEE REPLACEMENT (10/13/13) Sepsis Event Note (H) - Evaluation Current Stage of Sepsis: Sepsis Possible source of Sepsis: positive: GI tract/intra-abdominal - Sepsis Criteria Sepsis Criteria: WBC count greater than 12,000 or less than 4000, Renal: urine output less than 0.5ml/kg/hr for 2 hours or creatinine gr, Metabolic: lactate > 2 mmol/L ABX Reporting Has patient been on IV antibiotics over the past 48 hours?: Yes Current Medications - Current Medications Current Medications: Active Medications Acetaminophen (Tylenol) 650 mg PO Q4HR PRN PRN Reason: Pain 1 to 4 Last Admin: 02/01/20 02:31 Dose: 650 mg Documented by: Alcohol (Nozin) 1 amp LUCINDA BID [facility] Last Admin: 02/03/20 08:50 Dose: 1 amp Documented by: Allopurinol (Zyloprim) 100 mg PO DAILY [facility] Last Admin: 02/03/20 08:49 Dose: 100 mg Documented by: Alprazolam (Xanax) 1 mg PO BID [facility] Last Admin: 02/03/20 08:51 Dose: Not Given Documented by: Anastrozole (Anastrozole) 1 mg PO DAILY [facility] Last Admin: 02/03/20 08:50 Dose: 1 mg Documented by: Aspirin (Ecotrin) 81 mg PO DAILY [facility] Last Admin: 02/03/20 08:49 Dose: 81 mg Documented by: Atorvastatin Calcium (Lipitor) 10 mg PO QPM [facility] Last Admin: 02/02/20 22:36 Dose: 10 mg Documented by: Bupropion HCl (Wellbutrin Xl) 300 mg PO DAILY [facility] Last Admin: 02/03/20 08:50 Dose: 300 mg Documented by: Cholecalciferol (Vitamin D3) 125 mcg PO DAILY [facility] Last Admin: 02/03/20 09:18 Dose: 125 mcg Documented by: Doxycycline Hyclate (Vibramycin) 100 mg PO BID [facility] Last Admin: 02/03/20 14:38 Dose: 100 mg Documented by: Enoxaparin Sodium (Lovenox) 40 mg SUBQ DAILY [facility] Last Admin: 02/03/20 08:50 Dose: 40 mg Documented by: Sodium Chloride (Normal Saline 0.9%) 1,000 mls @ 75 mls/hr IV .[id number] [facility] Last Infusion: 02/03/20 12:49 Dose: 0 mls/hr Documented by: Insulin Aspart (Novolog) 5 unit SUBQ TIDWM [facility]; Protocol Insulin Aspart (Novolog) 1 - 9 unit SUBQ 0800,1200,1700,2100 [facility]; Protocol Insulin Glargine (Lantus Solostar) 26 unit SUBQ QPM [facility] Last Admin: 02/02/20 22:39 Dose: 26 unit Documented by: Insulin Glargine (Lantus Solostar) 5 unit SUBQ QDBREAKFAST [facility] Last Admin: 02/03/20 08:53 Dose: 5 unit Documented by: Levothyroxine Sodium (Synthroid) 125 mcg PO QDAC [facility] Last Admin: 02/03/20 06:51 Dose: 125 mcg Documented by: Nystatin (Mycostatin Cream) 1 applic TOP BID [facility] Last Admin: 02/03/20 08:51 Dose: 1 applic Documented by: Ondansetron HCl (Zofran Inj) 4 mg IVP Q6HR PRN PRN Reason: Nausea / Vomiting Polyethylene Glycol (Miralax) 17 gm PO DAILY [facility] Last Admin: 02/03/20 08:50 Dose: 17 gm Documented by: Sodium Chloride (Normal Saline Flush 0.9%) 10 ml IVP PRN PRN PRN Reason: NEEDED PER PROVIDER ORDERS Last Admin: 01/31/20 06:43 Dose: 10 ml Documented by: Sodium Chloride (Normal Saline Flush 0.9%) 10 ml IVP 0100,0900,1700 [facility] Last Admin: 02/03/20 08:50 Dose: Not Given Documented by: Levothyroxine Sodium [Levothroid] 125 mcg PO DAILY 09/25/12 Lovastatin [Mevacor] 40 mg PO DAILY 09/25/12 allopurinoL [Allopurinol] 100 mg PO DAILY 09/25/12 Furosemide [Lasix] 80 mg PO QAM 11/28/12 Insulin Aspart [Novolog] 25 unit SQ TID 11/28/12 Metformin HCl 1,000 mg PO BID 11/28/12 Potassium Chloride [Klor-Con 10] 40 meq PO DAILY 11/28/12 Cholecalciferol (Vitamin D3) [Vitamin D3] 5,000 unit PO DAILY 07/16/13 Alprazolam 1 mg PO QPM PRN 10/08/13 Anastrozole 1 mg PO DAILY 03/25/15 Insulin Glargine,Hum.rec.anlog [Basaglar Kwikpen U-100] 26 unit SUBQ DAILY 05/28/18 Bupropion HCl [Wellbutrin Xl] 300 mg PO DAILY 01/31/20
[2020-02-03] MEDS: ATORVASTATIN 10 MG TABLET PO SCH (21:39)
[2020-02-04 00:12] VITALS: BP 158/44
[2020-02-04] MEDS: LEVOTHYROXINE 125 MCG TABLET PO SCH (06:14)
[2020-02-04 06:36] LABS: BASOPHILS % (AUTO) 1.3 %; EOSINOPHILS % (AUTO) 12.9 %; HGB - HEMOGLOBIN 11.6 g/dL (12.0-16.0); LYMPHOCYTES % (AUTO) 24.4 %; MEAN CORPUSCULAR HGB CONC 33.2 g/dL (32.0-36.0); MEAN CORPUSCULAR VOLUME 90.2 fL (81.0-99.0); MONOCYTES % (AUTO) 13.2 %; NEUTROPHILS % (AUTO) 44.9 %; PLT - PLATELET COUNT 217 10^3/uL (130-450); RED BLOOD COUNT 3.87 10^6/uL (4.20-5.40); RED CELL DISTRIBUTION WIDTH 15.6 % (12.0-15.0)
[2020-02-04 06:39] LABS: ABNORMAL LYMPHS % (MANUAL) 0 %
[2020-02-04 06:51] LABS: ALBUMIN 2.3 g/dL (3.2-5.5); BILIRUBIN,TOTAL 0.6 mg/dL (0.2-1.0); CALCIUM 8.8 mg/dL (8.5-10.3); CREATININE 0.8 mg/dL (0.4-1.0); TOTAL PROTEIN 4.7 g/dL (6.7-8.2)
[2020-02-04 07:29] LABS: BAND NEUTROPHILS % (MANUAL) 2 %; LYMPHOCYTES # (MANUAL) 2.7 10^3/uL (1.5-3.5); LYMPHOCYTES % (MANUAL) 25 %; MONOCYTES # (MANUAL) 1.2 10^3/uL (0.0-1.0)
[2020-02-04 07:32] LABS: DIFFERENTIAL COMMENT MANUAL DIFFERENTIAL
[2020-02-04 07:33] LABS: PLATELET ESTIMATE, MANUAL NORMAL (130-450,000) (NORMAL); PLATELET MORPHOLOGY NORMAL APPEARANCE (NORMAL); RBC MORPHOLOGY (MULTIPLE) NORMAL APPEARANCE (NORMAL)
[2020-02-04] MEDS: INSULIN ASPART 300 UNIT/3 ML PEN SUBQ SCH ×2 (08:15)
[2020-02-04] MEDS: INSULIN GLARGINE 300 UNIT/3 ML PEN SUBQ SCH (08:16)
[2020-02-04] MEDS: buPROPion XL 150 MG TABLET PO SCH (08:38)
[2020-02-04] MEDS: ENOXAPARIN 40 MG/0.4 ML SYRINGE SUBQ SCH (08:38)
[2020-02-04] MEDS: CHOLECALCIFEROL 25 MCG TABLET PO SCH (08:39)
[2020-02-04] MEDS: ethyl alcohoL 62% SWAB AMPULE NAS SCH (08:39)
[2020-02-04] MEDS: ASPIRIN EC 81 MG TABLET PO SCH (08:39)
[2020-02-04] MEDS: allopurinoL 100 MG TABLET PO SCH (08:39)
[2020-02-04] MEDS: ANASTROZOLE 1 MG TABLET PO SCH (08:39)
[2020-02-04] MEDS: SODIUM CHLORIDE FLUSH 0.9% 10 ML SYRINGE IVP SCH (08:40)
[2020-02-04] MEDS: ALPRAZolam 0.25 MG TABLET PO SCH (08:40)
[2020-02-04] MEDS: NYSTATIN CREAM 15 GM TUBE TOP SCH (08:40)
[2020-02-04] MEDS: polyethylene glycoL 3350 17 GM PACKET PO SCH (08:49)
[2020-02-04] MEDS: DOXYCYCLINE 100 MG TABLET PO SCH (08:49)
--- NOTE | 2020-02-04 08:58 | Discharge Plan ---
"Discharge Plan for SNF / [facility] - Discharge Plan And Transition Orders Problem Reviewed?: Yes Disposition: 03 SNF DC/Xfer Condition: Stable Allergies and Adverse Reactions: Allergies Allergy/AdvReac Type Severity Reaction Status Date / Time lisinopril Allergy Intermediate low BP Verified 01/30/20 13:06 Penicillins Allergy Intermediate Unknown Verified 01/30/20 13:06 theophylline Allergy Intermediate Rash Verified 01/30/20 13:06 oxycodone Allergy Unknown Verified 01/30/20 13:06 aripiprazole [From Abilify] AdvReac Intermediate Depression Verified 01/30/20 13:06 clindamycin AdvReac Intermediate stomatitis Verified 01/30/20 13:06 losartan potassium * AdvReac Intermediate renal Verified 01/30/20 13:06 [From Cozaar] problems Health Concerns: cellulitis infection, confused Plan of Treatment: pt's cellulitis is great improved, will give another four days antibiotics. Pt's confusion is returned to her baseline, pt likely has underline dementia. advise pt Continue PT/OT in SNF for her weakness Care Goals: stabilization and improvement of pt's medical condition Assessment: discussed with pt and pt's son by the phone the care plan, they understood - SNF / [facility] Transition Orders Admit to (Facility): [facility] Under the care of (Name): medical provider of [facility] Discharge Diagnosis: sepsis resolving, confusion, cellulitis, DM2, right side weakness, Rhabdomyolysis, JARROD, weakness Medicare Certification Statement: I certify that Post Hospital fdc care is medically necessary on a continuing basis for any of the conditions for which she/he is receiving care during hospitalization. Notify PCP of admission and forward orders to primary provider for signature. Weight on admission and: Daily Call PCP immediately if weight increases by: 2 kg Other Notification Orders: Call PCP immediately if patient develops dyspnea, chest pain/tightness or edema. House Bowel Program: Yes Additional Bowel Program Orders: If no BM after 2 days, nurse may give M.O.M. 30ml PO PRN and/or ducolax Supp 1 NV and/or CARSON 250mg P.O., and/or senna 1-2 tabs PO. On day 3 nurse may give repeat above order until residents constipation is resolved. Annual Influenza Vaccine (between Nov 09 and June 08): Yes Two-step PPD per [facility] [phone] or approved exception documents: Yes Treatments & Other Orders: pt's cellulitis is great improved, will give another four days antibiotics. Pt's confusion is returned to her baseline, pt likely has underline dementia. advise pt Continue PT/OT in SNF for her weakness Medication Orders: PLEASE REFER TO THE DISCHARGE MEDICATION LIST. - Medications New Prescriptions: Nystatin Cream [Mycostatin Cream] 1 applic TOP BID #1 tube Doxycycline [Vibramycin] 100 mg PO BID #8 tablet - Diet Type: Geriatric Texture: Regular Liquids: Thin May have monthly special meal: Yes - Therapies | Activity Therapy: Evaluation | Treat if indicated: PT, OT Rehabilitation Potential: Maximize functional status Activity: Activity as Tolerated"
[2020-02-04] MEDS ORDERED: amLODIPine 5 MG TABLET PO SCH (09:00)
--- NOTE | 2020-02-04 09:15 | DISCHARGE SUMMARY ---
Discharge Summary Admit Date: 01/31/20 Discharge Date: 02/04/20 Discharging Provider: Silas Loera Primary Care Provider: Dr. Geno Jameson Condition at Discharge: Stable Discharge Disposition: SNF DC/Xfer Discharge Facility Name: [facility] - DIAGNOSES Discharge Diagnoses with Status of Each Condition: (1) Sepsis resolving. pt is prescribed antibiotic to finish the treatment course. After treatment, patient has no tachycardia, patient has no fever, patient WBC is normal range. (2) confused resolved. Patient mental status return to her baseline (3) Cellulitis of abdominal wall resolving. pt is prescribed antibiotic to finish the treatment course. (4) Diabetes mellitus Patient's hemoglobin A1c was 8.3. continue home insulin regimen (5) Right sided weakness CT of the head was Unremarkable. resolved (6) Rhabdomyolysis resolved (7) Acute kidney injury Resolved (8)weakness Continue PT/OT in SNF (9) Candidal intertrigo pt is prescribed topic Nystatin - HPI History of Present Illness: refer from Dr. Tovar's HPI on 01/30/2020 At the time of this visit/exam the HPI was limited because the patient is somewhat confused and unable to provide a reliable history. She thinks it is 2020 and is unable to tell what month of the year it is. She was confused about when she was an could not tell what led to her coming to the hospital. She is however oriented to self and can't accurately tell her date of . The patient is a 74-year-old female who was found naked on the ground in her house by her neighbor. It is unclear how long she had been on the ground but suspected to be as long as 3 days. The patient was unable to explain why she was on the ground or why she could not get up. At the time of presentation in the ED she complained of pain around her right eye and on her right hip. In the ED she was noted to have rigors. Work-up showed a WBC of 23.7, lactic acid of 3.0, creatinine kinase of 2358, creatinine 1.2, glucose 350. CT of the abdomen pelvis showed focal wall thickeningInvolving the duodenum for which duodenitis was suspected. There was no finding of perforation or abscess. Also fat stranding was noted in the superficial anterior abdominal wall for which cellulitis was suspected. As a result of the above she was presented for admission for further treatment. At bedside she is awake alert, appears to be resting comfortably. She denies chest pain, dyspnea, abdominal pain, nausea, vomiting, fever or chills. She appears to have weakness in her right lower extremity and upper extremity. Passive movement of her right extremities produces pain at the shoulder joint and the hip joint. She has some dysmetria when attempting to do [id number] test with the right hand. - HOSPITAL COURSE Hospital Course: Patient was admitted for Evaluation for the confusion. Work-up showed a WBC of 23.7, lactic acid of 3.0, creatinine kinase of 2358, creatinine 1.2, glucose 350.CT of the abdomen concern abdomen wall cellulitis. Patient was treated with intravenous antibiotics, intravenous IV fluids, sliding scale with insulin. CAT scan of the head was unremarkable at admission. After treatment patient's mental status returned to baseline. WBC become normal range, blood culture was negative for bacteremia. Cellulitis in abdomen wall are resolved, no erythema, swelling or tenderness. CK become normal. Creatinine return the normal range. PT and OT evaluated and treated patient, patient was recommended to SNF for continued training for strength. Updated patient medical condition and care plan with the patient's son. - ALLERGIES Allergies/Adverse Reactions: Allergies Allergy/AdvReac Type Severity Reaction Status Date / Time lisinopril Allergy Intermediate low BP Verified 01/30/20 13:06 Penicillins Allergy Intermediate Unknown Verified 01/30/20 13:06 theophylline Allergy Intermediate Rash Verified 01/30/20 13:06 oxycodone Allergy Unknown Verified 01/30/20 13:06 aripiprazole [From Abilify] AdvReac Intermediate Depression Verified 01/30/20 13:06 clindamycin AdvReac Intermediate stomatitis Verified 01/30/20 13:06 losartan potassium * AdvReac Intermediate renal Verified 01/30/20 13:06 [From Cozaar] problems - MEDICATIONS Home Medications: Ambulatory Orders Medication Instructions Recorded Confirmed Levothyroxine Sodium [Levothroid] 125 mcg PO DAILY 09/25/12 01/31/20 Lovastatin [Mevacor] 40 mg PO DAILY 09/25/12 01/31/20 allopurinoL [Allopurinol] 100 mg PO DAILY 09/25/12 01/31/20 Furosemide [Lasix] 80 mg PO QAM 11/28/12 01/31/20 Insulin Aspart [Novolog Flexpen] 25 unit SQ TID 11/28/12 01/31/20 Metformin HCl 1,000 mg PO BID 11/28/12 01/31/20 Potassium Chloride [Klor-Con 10] 40 meq PO DAILY 11/28/12 01/31/20 Cholecalciferol (Vitamin D3) 5,000 unit PO DAILY 07/16/13 01/31/20 [Vitamin D3] Alprazolam 1 mg PO QPM PRN 10/08/13 01/31/20 Anastrozole 1 mg PO DAILY 03/25/15 01/31/20 Insulin Glargine,Hum.rec.anlog 26 unit SUBQ DAILY 05/28/18 01/31/20 [Basaglar Kwikpen U-100] Bupropion HCl [Wellbutrin Xl] 300 mg PO DAILY 01/31/20 01/31/20 Doxycycline [Vibramycin] 100 mg PO BID #8 tablet 02/04/20 Nystatin Cream [Mycostatin Cream] 1 applic TOP BID #1 tube 02/04/20 - PHYSICAL EXAM AT DISCHARGE General Appearance: positive: No acute distress, Alert. negative: Lethargic Eyes Bilateral: positive: Normal inspection, PERRL, No lid inflammation ENT: positive: ENT inspection nml, No signs of dehydration. negative: Purulent nasal drainage Neck: positive: Nml inspection, Thyroid nml, Trachea midline. negative: Thyromegaly, Tracheal deviation Respiratory: positive: Chest non-tender, No respiratory distress, Breath sounds nml. negative: Wheezes, Rales, Rhonchi Cardiovascular: positive: Regular rate & rhythm, No murmur. negative: Tachycardia, Bradycardia, Systolic murmur, Diastolic murmur Peripheral Pulses: positive: 2+ Abdomen: positive: Non-tender, Nml bowel sounds, No distention. negative: Tenderness, Guarding, Rebound Back: positive: Nml inspection Skin: positive: Color nml, Warm, Dry, Other (mild skin rash at pt's groin area. ). negative: Cyanosis, Diaphoresis, Pallor Extremities: positive: Non-tender, Full ROM, Nml appearance. negative: Calf tenderness Neurologic/Psychiatric: positive: Motor nml, Sensation nml, Mood/affect nml. negative: Weakness, Sensory loss, Facial droop, Slurred/abnml speech, Depressed mood/affect - LABS Result Diagrams: 02/04/20 06:30 02/04/20 06:30 - SEPSIS Current Stage of Sepsis: Sepsis Possible source of Sepsis: GI tract/intra-abdominal Sepsis Criteria: WBC count greater than 12,000 or less than 4000, Renal: urine output less than 0.5ml/kg/hr for 2 hours or creatinine gr, Metabolic: lactate > 2 mmol/L - FOLLOW UP Follow Up: pt's cellulitis is great improved, will give another four days antibiotics. Pt's confusion is returned to her baseline, pt likely has underline dementia. advise pt Continue PT/OT in SNF for her weakness - TIME SPENT Time Spent in Discharge (Minutes): 30
== END 2020-02-04 10:45 | DRG 871 ==
LOC: EDUNIT# → ED 12:54 → MS2 17:53
PROVIDERS: ADMIT Internal Medicine; ATTEND Nurse Practitioner Gerontology
DX: A41.9 Sepsis, unspecified organism (principal); G93.41 Metabolic encephalopathy; L03.311 Cellulitis of abdominal wall; M62.82 Rhabdomyolysis; B37.2 Candidiasis of skin and nail; N17.9 Acute kidney failure, unspecified; R22.0 Localized swelling, mass and lump, head; R65.20 Severe sepsis without septic shock; E11.65 Type 2 diabetes mellitus with hyperglycemia; E86.0 Dehydration; R53.1 Weakness; E78.00 Pure hypercholesterolemia, unspecified; F03.90 Unspecified dementia, unspecified severity, without behavioral disturbance, psychotic disturbance, mood disturbance, and anxiety; K29.80 Duodenitis without bleeding; M25.511 Pain in right shoulder; M25.551 Pain in right hip; I11.0 Hypertensive heart disease with heart failure; I50.9 Heart failure, unspecified; E78.5 Hyperlipidemia, unspecified; J44.9 Chronic obstructive pulmonary disease, unspecified; G47.30 Sleep apnea, unspecified; E03.9 Hypothyroidism, unspecified; Z79.82 Long term (current) use of aspirin; M10.9 Gout, unspecified; K59.09 Other constipation; N28.9 Disorder of kidney and ureter, unspecified; F32.9 Major depressive disorder, single episode, unspecified; F50.9 Eating disorder, unspecified; Z20.828 Contact with and (suspected) exposure to other viral communicable diseases; Z68.38 Body mass index [BMI] 38.0-38.9, adult; Z85.3 Personal history of malignant neoplasm of breast; Z87.891 Personal history of nicotine dependence; Z79.4 Long term (current) use of insulin; Z79.899 Other long term (current) drug therapy
CPT/HCPCS: 36415; 51702; 70450; 71045; 72125; 73030; 73502; 74177; 80053; 80202; 81001; 82550; 83036; 83605; 83735; 84100; 84443; 84484; 85025; 87040; 87631; 87640; 93005; 96365; 96366; 96367; 96368; 97162; 97167; 97530; 99285; 99291; A9270; J1650; J1815; J3370; J7120; Q9967; 0202U; 87086